=== PATIENT | female | born 1930 | race Caucasian/White ===

== ENCOUNTER 2017-11-21 09:20 | Observation (INO) | payer MEDICARE ==
[2017-11-21 10:04] LABS: Hematocrit 35 % (35-47); Hemoglobin 11.8 g/dl (12.0-16.0); Mean Corpuscular HGB Conc 34 g/dl (31-36); Mean Corpuscular Hemoglobin 28 pg (27-31); Mean Corpuscular Volume 83 fL (80-97); Mean Platelet Volume 9.5 um3 (7.4-10.4); Platelet Count 167 10^3/ul (150-450); Red Blood Count 4.22 10^6/ul (4.0-5.4); Red Cell Distribution Width 17 % (10.5-15); White Blood Count 15.2 10^3/ul (3.5-10.8)
--- NOTE | 2017-11-21 10:05 | RAD ---
INDICATION: Altered mental status. COMPARISON: Comparison is made with the prior study from October 01, 2015. TECHNIQUE: A portable view of the chest was obtained. FINDINGS: Cardiac and mediastinal contours appear to be within normal limits. The lungs are underinflated. There are small infiltrates at both lung bases. There is blunting of the left costophrenic angle possibly indicating a trace pleural effusion. IMPRESSION: LOW LUNG VOLUMES SMALL BIBASILAR INFILTRATES.
[2017-11-21 10:13] LABS: INR 0.87 (0.77-1.02)
[2017-11-21 10:27] LABS: EGFR Non-African American 21.3 (>60)
[2017-11-21 10:37] LABS: ABS Basophils 0.1 10^3/ul (0-0.2); ABS Eosinophils 0.1 10^3/ul (0-0.6); ABS Lymphocytes 2.6 10^3/ul (1.0-4.8); ABS Monocytes 1.1 10^3/ul (0-0.8); ABS Neutrophils 11.2 10^3/ul (1.5-7.7); ABS Nucleated RBC 0.1 10^3/ul; Eosinophil % 0.9 % (0-6); Nucleated Red Blood Cells % 0.3
[2017-11-21 11:12] LABS: Urine Appearance Cloudy; Urine Blood 2+ (Negative); Urine Color Yellow; Urine Ketones Negative (Negative); Urine Protein Negative (Negative); Urine Specific Gravity 1.009 (1.010-1.030); Urine Urobilinogen Negative (Negative)
[2017-11-21] MEDS ORDERED: Magnesium Sulfate 2 GM IV* 2 GM/50 ML BAG IVPB ONE (11:32)
[2017-11-21] MEDS ORDERED: cefTRIAXone(*) 1 GM in NS 0.9% 50 ML* 50 ML IVPB ONE (11:58)
[2017-11-21] MEDS ORDERED: Azithromycin IV(*) 500 MG in NS 0.9% 250 ML* 250 ML IVPB ONE (11:58)
[2017-11-21] MEDS ORDERED: NS 0.9% 1000 ML* 1,000 ML IV SCH (12:00)
[2017-11-21] MEDS ORDERED: Acetaminophen TAB* 325 MG PO PRN (12:40)
[2017-11-21] MEDS ORDERED: Loperamide CAP* 2 MG PO PRN (12:40)
[2017-11-21] MEDS ORDERED: Magnesium Sulfate IV* 3 GM in NS 0.9% 100 ML* 100 ML IVPB ONE (12:49)
--- NOTE | 2017-11-21 13:35 | ED ---
Keron Shin Tiffany, scribed for Joel Ledbetter MD on 11/21/17 at 0937 . HPI Diabetic - HPI Summary HPI Summary: The patient is an 87 year old F BIBA complains of low blood sugar since waking up one hour ago. Symptoms alleviated by EMS treatment. Reports diaphoresis, weakness, slurred speech. Per EMS, pt bg on arrival to scene was 40. D10 given en route, bg on arrival to ED 120 per EMS. Has hx of diabetes. - History Of Current Complaint Chief Complaint: EDDiabeticProb Time Seen by Provider: 11/21/17 09:21 Hx Obtained From: Patient, EMS Hx Last Menstrual Period: post christine Onset/Duration: Sudden Onset, Lasting Hours - 1 hour, Still Present Alleviating: EMS Treatment - Allergies/Home Medications Allergies/Adverse Reactions: Allergies Allergy/AdvReac Type Severity Reaction Status Date / Time banana Allergy Diarrhea Verified 11/21/17 09:43 Home Medications: Home Medications Atorvastatin* [Lipitor*] 20 mg PO DAILY 11/21/17 [History Confirmed 11/21/17] Chlorothiazide TAB* [Diuril TAB*] 250 mg PO DAILY 11/21/17 [History Confirmed ] Insulin Detemir (NF) [Levemir (NF)] 15 unit SUBCUT QAM 11/21/17 [History Confirmed 11/21/17] Lisinopril TAB* [Prinivil TAB*] 10 mg PO DAILY 11/21/17 [History Confirmed 11/21] Metoprolol Tartrate TAB* [Lopressor TAB*] 25 mg PO BID 11/21/17 [History Confirmed 11/21/17] Potassium Chlor TAB* [Klor Con ER TAB*] 20 meq PO DAILY 11/21/17 [History Confirmed 11/21/17] amLODIPine TAB* [Norvasc 5 mg TAB*] 10 mg PO DAILY 11/21/17 [History Confirmed 11/21/17] predniSONE TAB* [Deltasone TAB*] 5 mg PO DAILY 11/21/17 [History Confirmed 11/21] PMH/Surg Hx/FS Hx/Imm Hx Previously Healthy: No Endocrine/Hematology History: Reports: Hx Diabetes, Hx Anemia - ON IRON TABLETS , B12 shots/2 weeks Cardiovascular History: Reports: Hx Hypercholesterolemia, Hx Hypertension, Hx Rheumatic Fever - A CHILD Denies: Hx Congestive Heart Failure History: Reports: Hx Chronic Renal Failure - CKD stage III, Other Problems /Disorders - FREQUENT UTI Denies: Hx Renal Disease Musculoskeletal History: Comment Only: Other Musculoskeletal History - Knee injury 1995 Sensory History: Reports: Hx Cataracts - RIGHT, Hx Contacts or Glasses - At home , Hx Hearing Problem Denies: Hx Hearing Aid Opthamlomology History: Reports: Hx Cataracts - RIGHT, Hx Contacts or Glasses - At home Neurological History: Reports: Hx Dementia - Cancer History Hx Chemotherapy: No Hx Radiation Therapy: No - Surgical History Surgery Procedure, Year, and Place: 2009 RIGHT EYE CATARACT WITH IOL IMPLANT, [facility]. COLONOSCOPY Hx Anesthesia Reactions: No - Immunization History Date of Influenza Vaccine: Fall 2014 Infectious Disease History: No Infectious Disease History: Denies: Hx Clostridium Difficile, Hx Hepatitis, Hx Human Immunodeficiency Virus (HIV), History Other Infectious Disease, Traveled Outside the [place] in Last 30 Days - Family History Known Family History: Positive: Other - reviewed & noncontributory - Social History Lives: With Family - With nephew Alcohol Use: None Hx Substance Use: No Substance Use Type: Reports: None Hx Tobacco Use: Yes Smoking Status (MU): Former Smoker Type: Cigarettes Have You Smoked in the Last Year: No Review of Systems Positive: Skin Diaphoresis, Other - Low blood sugar Positive: Weakness, Slurred Speech All Other Systems Reviewed And Are Negative: Yes Physical Exam - Summary Physical Exam Summary: General: well-appearing, no pain distress Skin: warm, color reflects adequate perfusion, dry Head: normal Eyes: EOMI, REINA ENT: normal Neck: supple, nontender Respiratory: CTA, breath sounds present Cardiovascular: RRR Abdomen: soft, nontender Bowel: present Musculoskeletal: normal, strength/ROM intact Neurological: normal, sensory/motor intact, A&O x3 Psychological: affect/mood appropriate Triage Information Reviewed: Yes Vital Signs On Initial Exam: Initial Vitals Temp Pulse Resp BP Pulse Ox 97.4 F 94 14 167/72 100 11/21/17 09:22 11/21/17 09:22 11/21/17 09:22 11/21/17 09:22 11/21/17 09:22 Vital Signs Reviewed: Yes Diagnostics - Vital Signs Vital Signs Temp Pulse Resp BP Pulse Ox 11/21/17 09:22 97.4 F 94 14 167/72 100 - Laboratory Lab Results: Lab Results 11/21/17 11/21/17 11/21/17 Range/Units 09:52 09:52 09:52 WBC 15.2 H (3.5-10.8) 10^3/ul RBC 4.22 (4.0-5.4) 10^6/ul Hgb 11.8 L (12.0-16.0) g/dl Hct 35 (35-47) % MCV 83 (80-97) fL MCH 28 (27-31) pg MCHC 34 (31-36) g/dl RDW 17 H (10.5-15) % Plt Count 167 (150-450) 10^3/ul MPV 9.5 (7.4-10.4) um3 Neut % (Auto) 73.9 (38-83) % Lymph % (Auto) 17.0 L (25-47) % [place] % (Auto) 7.5 H (0-7) % Eos % (Auto) 0.9 (0-6) % Baso % (Auto) 0.7 (0-2) % Absolute Neuts (auto) 11.2 H (1.5-7.7) 10^3/ul Absolute Lymphs (auto) 2.6 (1.0-4.8) 10^3/ul Absolute Monos (auto) 1.1 H (0-0.8) 10^3/ul Absolute Eos (auto) 0.1 (0-0.6) 10^3/ul Absolute Basos (auto) 0.1 (0-0.2) 10^3/ul Absolute Nucleated RBC 0.1 10^3/ul Nucleated RBC % 0.3 INR (Anticoag Therapy) 0.87 (0.77-1.02) APTT 32.5 (26.0-36.3) seconds Sodium 136 L (139-145) mmol/L Potassium 4.5 (3.5-5.0) mmol/L Chloride 110 (101-111) mmol/L Carbon Dioxide 15 L (22-32) mmol/L Anion Gap 11 (2-11) mmol/L BUN 43 H (6-24) mg/dL Creatinine 2.19 H (0.51-0.95) mg/dL Est GFR ( Amer) 27.4 (>60) Est GFR (Non-Af Amer) 21.3 (>60) BUN/Creatinine Ratio 19.6 (8-20) Glucose 220 H (70-100) mg/dL Lactic Acid (0.5-2.0) mmol/L Calcium 9.2 (8.6-10.3) mg/dL Magnesium 1.1 L (1.9-2.7) mg/dL Total Bilirubin 0.30 (0.2-1.0) mg/dL AST 12 L (13-39) U/L ALT 13 (7-52) U/L Alkaline Phosphatase 69 (34-104) U/L Total Creatine Kinase 55 (10-223) U/L CK-MB (CK-2) 1.7 (0.6-6.3) ng/mL Troponin I 0.01 (<0.04) ng/mL C-Reactive Protein 2.35 (< 5.00) mg/L Total Protein 7.3 (6.4-8.9) g/dL Albumin 3.8 (3.2-5.2) g/dL Globulin 3.5 (2-4) g/dL Albumin/Globulin Ratio 1.1 (1-3) Lipase 43 (11.0-82.0) U/L TSH 4.62 (0.34-5.60) mcIU/mL Urine Color Urine Appearance Urine pH (5-9) Ur Specific [place] (1.010-1.030) Urine Protein (Negative) Urine Ketones (Negative) Urine Blood (Negative) Urine Nitrate (Negative) Urine Bilirubin (Negative) Urine Urobilinogen (Negative) Ur Leukocyte Esterase (Negative) Urine WBC (Auto) (Absent) Urine RBC (Auto) (Absent) Ur Squamous Epith Cells (Absent) Urine Bacteria (Absent) Urine Glucose (Negative) 11/21/17 11/21/17 Range/Units 09:52 10:40 WBC (3.5-10.8) 10^3/ul RBC (4.0-5.4) 10^6/ul Hgb (12.0-16.0) g/dl Hct (35-47) % MCV (80-97) fL MCH (27-31) pg MCHC (31-36) g/dl RDW (10.5-15) % Plt Count (150-450) 10^3/ul MPV (7.4-10.4) um3 Neut % (Auto) (38-83) % Lymph % (Auto) (25-47) % [place] % (Auto) (0-7) % Eos % (Auto) (0-6) % Baso % (Auto) (0-2) % Absolute Neuts (auto) (1.5-7.7) 10^3/ul Absolute Lymphs (auto) (1.0-4.8) 10^3/ul Absolute Monos (auto) (0-0.8) 10^3/ul Absolute Eos (auto) (0-0.6) 10^3/ul Absolute Basos (auto) (0-0.2) 10^3/ul Absolute Nucleated RBC 10^3/ul Nucleated RBC % INR (Anticoag Therapy) (0.77-1.02) APTT (26.0-36.3) seconds Sodium (139-145) mmol/L Potassium (3.5-5.0) mmol/L Chloride (101-111) mmol/L Carbon Dioxide (22-32) mmol/L Anion Gap (2-11) mmol/L BUN (6-24) mg/dL Creatinine (0.51-0.95) mg/dL Est GFR ( Amer) (>60) Est GFR (Non-Af Amer) (>60) BUN/Creatinine Ratio (8-20) Glucose (70-100) mg/dL Lactic Acid 1.2 (0.5-2.0) mmol/L Calcium (8.6-10.3) mg/dL Magnesium (1.9-2.7) mg/dL Total Bilirubin (0.2-1.0) mg/dL AST (13-39) U/L ALT (7-52) U/L Alkaline Phosphatase (34-104) U/L Total Creatine Kinase (10-223) U/L CK-MB (CK-2) (0.6-6.3) ng/mL Troponin I (<0.04) ng/mL C-Reactive Protein (< 5.00) mg/L Total Protein (6.4-8.9) g/dL Albumin (3.2-5.2) g/dL Globulin (2-4) g/dL Albumin/Globulin Ratio (1-3) Lipase (11.0-82.0) U/L TSH (0.34-5.60) mcIU/mL Urine Color Yellow Urine Appearance Cloudy Urine pH 5.0 (5-9) Ur Specific [place] 1.009 L (1.010-1.030) Urine Protein Negative (Negative) Urine Ketones Negative (Negative) Urine Blood 2+ A (Negative) Urine Nitrate Negative (Negative) Urine Bilirubin Negative (Negative) Urine Urobilinogen Negative (Negative) Ur Leukocyte Esterase 1+ A (Negative) Urine WBC (Auto) 3+(>20/hpf) A (Absent) Urine RBC (Auto) 1+(3-5/hpf) A (Absent) Ur Squamous Epith Cells Present A (Absent) Urine Bacteria Absent (Absent) Urine Glucose 1+(50 mg/dl) A (Negative) Result Diagrams: 11/21/17 09:52 11/21/17 09:52 Lab Statement: Any lab studies that have been ordered have been reviewed, and results considered in the medical decision making process. - Radiology CXR Radiology Interpretation Completed By: Radiologist - LOW LUNG VOLUMES SMALL BIBASILAR INFILTRATES. ED physician has reviewed this report. 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 Re-Evaluation - Re-Evaluation First Eval Re-Evaluation Time: 11:57 Change: Unchanged Comment: Discussed dispo plan with patient, who would like to be admitted. Diabetic Course/Dx - Course Course Of Treatment: Medications reviewed. ADMIT HOSPITALIST. CRITICAL CARE TIME LESS THAN 30 MINUTES. - Diagnoses Provider Diagnoses: Hypoglycemia, Pneumonia - Physician Notifications Discussed Care Of Patient With: Brandy Read Time Discussed With Above Provider: 12:00 Instructed by Provider To: Other - Dr. Read, hospitalist, agrees to admit patient. Discharge - Sign-Out/Discharge Documenting (check all that apply): Discharge/Admit/Transfer - Discharge Plan Condition: Stable Disposition: ADMITTED TO [facility] Referrals: Jami Martin MD [Primary Care Provider] - - Billing Disposition and Condition Condition: STABLE [place] [place] The documentation as recorded by the Keron langley Tiffany accurately reflects the service I personally performed and the decisions made by , Joel Ledbetter MD.
--- NOTE | 2017-11-21 15:12 | HP ---
CC: Dr. Martin * [facility] MEDICINE HISTORY AND PHYSICAL: DATE OF ADMISSION: 11/21/17 PRIMARY CARE PHYSICIAN: Dr. Martin. ATTENDING PHYSICIAN: Brandy Read MD (dictation provided by Yessy Ferrara NP) CHIEF COMPLAINT: Diaphoresis and weakness. HISTORY OF PRESENT ILLNESS: Ms. Cordova is an 87-year-old female with a past medical history of insulin-dependent diabetes, CKD stage 3, and hypertension as well as polymyalgia rheumatica, on low-dose prednisone therapy chronically, who presents to the hospital today after waking this morning and feeling diaphoretic and weak. Ms. Cordova states that she was in her normal state of health yesterday. She denies any acute complaints including chest pain, shortness of breath, cough, fever, nausea, vomiting, diarrhea, malaise, dysuria , or frequency. She went to bed feeling well; however, when she awoke this morning at about 8 a.m., she felt very diaphoretic and weak. She was unable to get out of bed. She called for her son, Jake who lives with her and she was transported via EMS to the emergency room. Ms. Cordova was found to have a blood glucose of 40 on arrival via EMS. D10 was started and the patient was transported to the emergency room. The D10 has already been discontinued. Her repeat blood glucoses have been 120 and now 220. She is asymptomatic. She is tolerating oral intake well. Her workup includes white blood cell count of 15.2, but I will note that the patient has had a chronic leukocytosis since 2016. Remainder of her labs are remarkable only to show her chronic kidney disease, which is unchanged and a low magnesium of 1.1. Her urinalysis shows 1+ leuk esterase but no bacteria. Chest x-ray shows question of bibasilar infiltrates that likely reflect atelectasis. Ms. Cordova states that she saw Dr. Martin about 2 months ago. At that time, her Levemir insulin was increased, but that has been the only change with her medications recently and she continues chronically on glipizide for quite some time. I note that in the medical record, her last hemoglobin A1c was 8.4 as of 10/21/17. PAST MEDICAL HISTORY: 1. Polymyalgia rheumatica, on chronic low-dose prednisone. 2. Type 2 diabetes, insulin dependent. 3. CKD, stage 3. 4. History of anemia due to chronic disease. 5. Hypertension. 6. Hyperlipidemia. 7. Chronic leukocytosis, question if secondary to prednisone. MEDICATIONS: 1. Glipizide 10 mg p.o. b.i.d. with meals. 2. Levemir insulin 15 units subcutaneously q.a.m. 3. Tylenol 650 mg p.o. q.4 hours p.r.n. 4. Amlodipine 10 mg p.o. daily. 5. Atorvastatin 20 mg p.o. daily. 6. Calcitriol 0.25 mcg p.o. Wednesday, Wednesday, Wednesday. 7. Chlorothiazide 250 mg p.o. daily. 8. Folic acid 1 mg p.o. daily. 9. Lisinopril 10 mg p.o. daily. 10. Imodium 2 mg p.o. q.6 hours p.r.n. 11. Metoprolol tartrate 25 mg p.o. b.i.d. 12. Omeprazole 20 mg p.o. daily. 13. Potassium chloride 20 mEq p.o. daily. 14. Prednisone 5 mg p.o. daily. ALLERGIES: BANANAS. FAMILY HISTORY: The patient reports her mother and father both in their 70s of what she considered old age. SOCIAL HISTORY: No report of alcohol, tobacco, or drug use. The patient lives with her nephew, Jake. She states that her son, Jonatan and her daughter, Eladia, would be her healthcare proxies. REVIEW OF SYSTEMS: A 14-point review of systems was completed with Ms. Cordova and all those not mentioned above were negative. PHYSICAL EXAMINATION GENERAL: Ms. Cordova is lying in the bed with the family at the bedside. She is in no acute distress. VITAL SIGNS: Temperature 97.4, pulse rate 75, respiratory rate 14, O2 saturation 99% on room air, blood pressure 135/76. LUNGS: Clear to auscultation bilaterally with no accessory muscle use and good aeration. HEART: S1, S2. No murmur, rub, or gallop and regular. ABDOMEN: Soft, nontender with bowel sounds positive x4. EXTREMITIES: No cyanosis. Positive for 1 to 2+ pitting edema up to the mid calf. NEURO: She is alert. She is oriented x3. She moves all extremities equally. There is no facial asymmetry or focal weakness. Extraocular movements are intact. SKIN: Intact. DIAGNOSTIC STUDIES/LAB DATA: WBC 15.2, hemoglobin 11.8, hematocrit 35, platelet count 167. INR 0.87. Sodium 136, potassium 4.5, chloride 110, serum bicarbonate 15, BUN 43, creatinine 2.19, glucose 220. Lactic acid 1.2. Magnesium 1.1. TSH 4.62. Urine shows 1+ leuk esterase, no nitrite, no bacteria. Chest x-ray shows "low lung volumes, small bibasilar infiltrates." The EKG shows a sinus rhythm with a heart rate of 78. ASSESSMENT AND PLAN: Ms. Cordova is an 87-year-old female with a past medical history of insulin-dependent type 2 diabetes, polymyalgia rheumatica, on prednisone, chronic kidney disease stage 3, chronic anemia, and hypertension, who presents to the hospital today with concern for diaphoresis and weakness. This a.m. on awakening, found to be hypoglycemic with a blood glucose in the 40s. Our plans are for observation in the hospital for the followin. Hypoglycemia: The patient's blood glucose is now running 220. The D10 infusion is off. We will continue to monitor blood glucose closely at q.4 hours and we will initiate insulin therapy when appropriate. The patient will continue on IV fluids. The cause of her hypoglycemia is not clear. She has no evidence of infection. She states that she was feeling well yesterday and was eating per her routine. I see no evidence of abnormality in the workup thus far. Plan will be to treat hypoglycemia and any further interventions will be based on clinical course. 2. Leukocytosis. The patient has a chronic leukocytosis. No evidence of infection on workup or from reported symptoms. We will continue to monitor, but do not feel that antibiotics are indicated at this time. 3. Chronic kidney disease, stage 3. The patient's creatinine is at baseline. Plan to continue home medications. 4. Hypomagnesemia. Magnesium has been repleted in the emergency room at 2 g. Plan to add further 3 more grams and we will recheck in the a.m. The patient has had chronic hypomagnesemia per the electronic medical record. 5. Hypertension. The patient's blood pressure is well controlled. We will continue with amlodipine, metoprolol, lisinopril, chlorothiazide. I do note that the patient reports chronic lower extremity edema, which is present today. She may benefit from adjustments to her regimen to include additional diuretic agents, but will not initiate that at this time, but will refer her to primary care since this is a chronic issue. 6. Polymyalgia rheumatica. Continue prednisone. This likely contributes to her lower extremity edema, but it is important for control of pain and her polymyalgia rheumatica. Continue as per Dr. Moreno's recommendations. 7. Gastroesophageal reflux disease. Continue omeprazole. 8. Hyperlipidemia. Continue atorvastatin. 9. DVT prophylaxis with heparin subcu. 10. Code status is full code. TIME SPENT: Approximately 60 minutes was spent on the admission of this patient , and more than half of the time was spent with the patient at the bedside reviewing the events leading up to this hospitalization, performing the physical examination and reviewing my plan of care. YESSY FERRARA NP [id number]/[facility] #: [id number] NANDINI
[2017-11-21] MEDS: NS 0.9% 1000 ML* 1,000 ML IV SCH (15:21)
[2017-11-21] MEDS: Heparin VIAL(*) 5000 UNITS/ML VIAL (FIVE THOUSAND) SUBCUT SCH ×2 (15:21→21:18)
[2017-11-21] MEDS ORDERED: Magnesium Sulfate 2 GM IV IVPB ONE (16:00)
[2017-11-21] MEDS ORDERED: Magnesium Sulfate 1 GM IV* 1 GM/100 ML BAG IV ONE (17:00)
[2017-11-21] MEDS ORDERED: Dextrose 50% Syringe 50 ML* 25 GM/50 ML SYRINGE IV PUSH PRN ×2 (20:23)
[2017-11-21] MEDS: Metoprolol Tartrate TAB* 25 MG PO SCH (21:17)
[2017-11-21] MEDS: Insulin LISPRO* 1 UNITS UNIT SUBCUT ONE ×2 (21:21→21:28)
[2017-11-22] MEDS: NS 0.9% 1000 ML* 1,000 ML IV SCH (01:17)
[2017-11-22] MEDS: Heparin VIAL(*) 5000 UNITS/ML VIAL (FIVE THOUSAND) SUBCUT SCH (05:33)
[2017-11-22 07:07] LABS: EGFR Non-African American 24.5 (>60)
[2017-11-22 07:20] LABS: ABS Basophils 0.1 10^3/ul (0-0.2); ABS Eosinophils 0.1 10^3/ul (0-0.6); ABS Lymphocytes 2.7 10^3/ul (1.0-4.8); ABS Monocytes 0.8 10^3/ul (0-0.8); ABS Neutrophils 6.3 10^3/ul (1.5-7.7); ABS Nucleated RBC 0.1 10^3/ul; Eosinophil % 1.3 % (0-6); Hematocrit 28 % (35-47); Hemoglobin 9.6 g/dl (12.0-16.0); Lymphocyte % 27.4 % (25-47); Mean Corpuscular HGB Conc 34 g/dl (31-36); Mean Corpuscular Hemoglobin 28 pg (27-31); Mean Corpuscular Volume 83 fL (80-97); Mean Platelet Volume 9.5 um3 (7.4-10.4); Nucleated Red Blood Cells % 0.5; Platelet Count 148 10^3/ul (150-450); Red Blood Count 3.41 10^6/ul (4.0-5.4); Red Cell Distribution Width 17 % (10.5-15)
[2017-11-22] MEDS: Insulin LISPRO* 1 UNITS UNIT SUBCUT SCH ×2 (08:04→12:28)
[2017-11-22] MEDS: Metoprolol Tartrate TAB* 25 MG PO SCH (08:55)
[2017-11-22] MEDS ORDERED: Potassium Chlor TAB* 20 MEQ TAB.ER PO SCH (09:00)
[2017-11-22] MEDS ORDERED: Omeprazole CAP* 20 MG PO SCH (09:00)
[2017-11-22] MEDS ORDERED: Folic Acid TAB* 1 MG PO SCH (09:00)
[2017-11-22] MEDS ORDERED: Atorvastatin* 20 MG TAB PO SCH (09:00)
[2017-11-22] MEDS ORDERED: CHLOROTHIAZIDE 500 MG PO SCH (09:00)
[2017-11-22] MEDS ORDERED: Lisinopril TAB* 10 MG PO SCH (09:00)
[2017-11-22] MEDS ORDERED: amLODIPine TAB* 5 MG PO SCH (09:00)
[2017-11-22] MEDS ORDERED: predniSONE TAB* 5 MG PO SCH (09:00)
[2017-11-22 11:16] VITALS: BP 117/50
[2017-11-22] MEDS ORDERED: Calcitriol CAP* 0.25 MCG PO SCH (12:40)
--- NOTE | 2017-12-20 00:16 | DS ---
CC: Dr. Martin * DISCHARGE SUMMARY: DATE OF ADMISSION: 11/21/17 DATE OF DISCHARGE: 11/22/17 PATIENT OF: Dr. Brandy Read. ADMITTING PHYSICIAN: Dr. Read.* (DICTATED BY LOUSI WINKLER) ATTENDING HOSPITALIST: Dr. Read. PRIMARY CARE PHYSICIAN: Dr. Martin. ADMISSION DIAGNOSES: 1. Diaphoresis and weakness. 2. History of polymyalgia rheumatica, on chronic low dose prednisone. 3. Type 2 diabetes mellitus, insulin-dependent. 4. Chronic kidney disease, stage 3. 5. History of anemia due to chronic disease. 6. Hypertension. 7. Hyperlipidemia. 8. Chronic leukocytosis likely secondary to prednisone use. DISCHARGE DIAGNOSES: 1. Diaphoresis and weakness. 2. History of polymyalgia rheumatica, on chronic low dose prednisone. 3. Type 2 diabetes mellitus, insulin-dependent. 4. Chronic kidney disease, stage 3. 5. History of anemia due to chronic disease. 6. Hypertension. 7. Hyperlipidemia. 8. Chronic leukocytosis likely secondary to prednisone use. 9. Hypoglycemia. HISTORY OF PRESENT ILLNESS: Ms. Cordova is a pleasant 87-year-old female with a past medical history of insulin-dependent diabetes mellitus, chronic kidney disease, hypertension, and polymyalgia rheumatica, who presented to the emergency room after she woke up this morning and feeling diaphoretic and weak. The patient denies any acute complaints in the emergency room such as chest pain, shortness of breath, cough, fever, nausea, or vomiting. She went to the bed the night before feeling well; however, she woke up on the morning of feeling shaky, weak, and diaphoretic. She checked her blood glucose at home and reports being low. She called the ambulance and the EMS staff on arrival checked her blood glucose and found to be at value of 40. She was given an ampule of D10 and the patient was transported to the emergency room at [facility]. Upon presentation to the ED, her blood glucose was checked again and now was at level of 120 and few minutes later at 220. She was asymptomatic at this time. The patient tolerating oral intake well and had laboratory workup that revealed mild leukocytosis, which is basically at her baseline of 15,000. The remainder of her chemistry and other labs were essentially unremarkable. She also had a questionable chest x-ray that showed bibasilar infiltrate most likely reflect atelectasis since she was asymptomatic. Given the findings of her hypoglycemic episodes, we were asked to see the patient for observation overnight. HOSPITAL COURSE: The patient was admitted overnight for observation and had serial check of her blood sugar. She only had 1 dextrose 10 infusion en route to the emergency room and since then, her blood glucose levels were risen in reasonable numbers. It was unclear what caused her hypoglycemic episode; however, there was no evidence of any infection during her hospitalization. She had laboratory workup on the following morning that revealed no significant changes. She had repeat blood glucose checks that continued to be at reasonable value. On the discharge morning, the patient was examined and found to be alert, oriented and has no complaints. Her heart was regular rate and rhythm with no murmurs noted. Her lungs were clear to auscultation bilaterally. Her abdomen was soft, nontender, and nondistended. Laboratory workup on the following day revealed sodium of 139, potassium 4.7, chloride 115 , CO2 18, BUN 36 and creatinine of 1.9. Her glucose was 158, magnesium was 2.6 and her CBC revealed a white count of 10,000, hemoglobin 9.6, and hematocrit 28 , platelets of 148. The patient was stable to be discharged home and will continue her antihyperglycemic regimen at home, to follow up with Dr. Martin as an outpatient. DISCHARGE MEDICATIONS: Include: 1. Acetaminophen 650 mg p.o. q.4 hours as needed for fever or pain. 2. Norvasc 10 mg p.o. daily. 3. Lipitor 20 mg p.o. daily. 4. Rocaltrol 0.25 mcg p.o. daily. 5. Diuril 250 mg p.o. daily. 6. Folic acid 1 mg p.o. daily. 7. Glipizide 10 mg p.o. b.i.d. 8. Levemir insulin 15 unit subcu. 9. Lisinopril 10 mg p.o. daily. 10. Imodium 2 mg p.o. q.6 hours as needed for diarrhea. 11. Magnesium oxide 400 mg p.o. daily. 12. Metoprolol 25 mg p.o. b.i.d. 13. Prilosec 20 mg p.o. daily. 14. Potassium 20 mEq p.o. daily. 15. Prednisone 5 mg p.o. daily. LOUIS WINKLER [id number]/[facility] #: [id number] [facility] [place] DIVISIONPartha
== END 2017-11-22 13:00 | disposition home or self-care (01) ==
LOC: ED 09:20 → MED 12:37
PROVIDERS: ADMIT Internal Medicine; ATTEND Internal Medicine
DX: R61 Generalized hyperhidrosis (principal); R53.1 Weakness; I12.9 Hypertensive chronic kidney disease with stage 1 through stage 4 chronic kidney disease, or unspecified chronic kidney disease; E11.22 Type 2 diabetes mellitus with diabetic chronic kidney disease; N18.3 Chronic kidney disease, stage 3 (moderate); Z79.4 Long term (current) use of insulin; M35.3 Polymyalgia rheumatica; D63.8 Anemia in other chronic diseases classified elsewhere; E78.5 Hyperlipidemia, unspecified; D72.829 Elevated white blood cell count, unspecified; Z79.899 Other long term (current) drug therapy; Z87.891 Personal history of nicotine dependence; I48.91 Unspecified atrial fibrillation; I45.2 Bifascicular block
CPT/HCPCS: 36415; 71045; 80048; 80053; 81003; 81015; 82306; 82550; 82553; 82728; 83540; 83550; 83605; 83690; 83735; 84443; 84484; 85025; 85610; 85730; 86140; 87040; 87077; 87086; 87186; 93005; 96365; 96367; 96372; 99285; A9270-GY; G0378; J0456; J0696; J1644; J3475; J7512

== ENCOUNTER 2019-01-22 11:26 | Inpatient (IN) | payer MEDICARE ==
--- NOTE | 2019-01-22 11:45 | ED ---
Abdominal Pain/Female - HPI Summary HPI Summary: This patient is an 88 year old female accompanied by her daughter presenting to [facility] with a chief complaint of general weakness since 3 days ago. She states three days of nausea with one episode of vomiting in the morning with each day before her first meal. She states one episode of diarrhea yesterday one time. She denies any abdominal pain. Her daughter states she was here several months ago with similar symptoms and she was diagnosed and treated for a UTI. She denies abdominal pain, chest pain, and shortness of breath. - History of Current Complaint Chief Complaint: EDNauseaVomitDiarrh Stated Complaint: WEAKNESS AND QUEASY PER PT Time Seen by Provider: 01/22/19 11:38 Hx Obtained From: Patient, Family/Health Unit Supervisor Hx Last Menstrual Period: post christine Onset/Duration: Lasting Days Pain Intensity: 0 Pain Scale Used: 0-10 Numeric Allergies/Adverse Reactions: Allergies Allergy/AdvReac Type Severity Reaction Status Date / Time banana Allergy Diarrhea Verified 01/22/19 11:33 PMH/Surg Hx/FS Hx/Imm Hx Endocrine/Hematology History: Reports: Hx Diabetes, Hx Anemia - ON IRON TABLETS , B12 shots/2 weeks Cardiovascular History: Reports: Hx Hypercholesterolemia, Hx Hypertension, Hx Rheumatic Fever - A CHILD Denies: Hx Congestive Heart Failure History: Reports: Hx Chronic Renal Failure - CKD stage III, Other Problems /Disorders - FREQUENT UTI Denies: Hx Renal Disease Musculoskeletal History: Comment Only: Other Musculoskeletal History - Knee injury 1995 Sensory History: Reports: Hx Cataracts - RIGHT, Hx Contacts or Glasses - At home , Hx Hearing Problem Denies: Hx Hearing Aid Opthamlomology History: Reports: Hx Cataracts - RIGHT, Hx Contacts or Glasses - At home Neurological History: Reports: Hx Dementia - Cancer History Hx Chemotherapy: No Hx Radiation Therapy: No - Surgical History Surgery Procedure, Year, and Place: 2009 RIGHT EYE CATARACT WITH IOL IMPLANT, [facility] – [place], [place]. COLONOSCOPY Hx Anesthesia Reactions: No - Immunization History Date of Tetanus Vaccine: t Date of Influenza Vaccine: Fall 2014 Infectious Disease History: No Infectious Disease History: Denies: Hx Clostridium Difficile, Hx Hepatitis, Hx Human Immunodeficiency Virus (HIV), History Other Infectious Disease, Traveled Outside the [place] in Last 30 Days - Family History Known Family History: Positive: Non-Contributory Negative: Cardiac Disease - Social History Alcohol Use: None Hx Substance Use: No Substance Use Type: Reports: None Hx Tobacco Use: Yes Smoking Status (MU): Former Smoker Type: Cigarettes Have You Smoked in the Last Year: No Review of Systems Negative: Chest Pain Negative: Shortness Of Breath Positive: Vomiting, Diarrhea, Nausea. Negative: Abdominal Pain Positive: Weakness All Other Systems Reviewed And Are Negative: Yes Physical Exam - Summary Physical Exam Summary: VITAL SIGNS: Reviewed. GENERAL: Patient is a well-developed and nourished FEMALE who is lying comfortable in the stretcher. Patient is not in any acute respiratory distress. HEAD AND FACE: No signs of trauma. No ecchymosis, hematomas or skull depressions. No sinus tenderness. EYES: PERRLA, EOMI x 2, No injected conjunctiva, no nystagmus. EARS: Hearing grossly intact. Ear canals and tympanic membranes are within normal limits. MOUTH: Oropharynx within normal limits. NECK: Supple, trachea is midline, no adenopathy, no JVD, no carotid bruit, no c- spine tenderness, neck with full ROM. CHEST: Symmetric, no tenderness at palpation. LUNGS: Clear to auscultation bilaterally. No wheezing or crackles. CVS: Regular rate and rhythm, S1 and S2 present, no murmurs or gallops appreciated. ABDOMEN: Soft, non-tender. No signs of distention. No rebound, no guarding, and no masses palpated. Bowel sounds are normal. EXTREMITIES: FROM in all major joints, no edema, no cyanosis or clubbing. NEURO: Alert and oriented x 3. No acute neurological deficits. Speech is normal and follows commands. SKIN: Dry and warm. Triage Information Reviewed: Yes Vital Signs On Initial Exam: Initial Vitals Temp Pulse Resp BP Pulse Ox 97.1 F 91 14 136/63 99 01/22/19 11:26 01/22/19 11:26 01/22/19 11:26 01/22/19 11:26 01/22/19 11:26 Vital Signs Reviewed: Yes Diagnostics - Vital Signs Vital Signs Temp Pulse Resp BP Pulse Ox 01/22/19 11:26 97.1 F 91 14 136/63 99 - Laboratory Result Diagrams: 01/22/19 12:23 01/22/19 12:23 Lab Statement: Any lab studies that have been ordered have been reviewed, and results considered in the medical decision making process. Abdominal Pain Fem Course/Dx - Course Course Of Treatment: This patient is an 88 year old female accompanied by her daughter presenting to [facility] with a chief complaint of general weakness since 3 days ago. She states three days of nausea with one episode of vomiting in the morning with each day before her first meal. She states one episode of diarrhea yesterday one time. She denies any abdominal pain. Her daughter states she was here several months ago with similar symptoms and she was diagnosed and treated for a UTI. She denies abdominal pain, chest pain, and shortness of breath. Blood work without any significant abnormality except for WBCs of 13.7, positional is 3.3, couple days is 17, anion of 17, BUN 83 creatinine 4.28, glucose 132, lactic acid is 2.8, calcium 8.5, magnesium 1.1, CRP is 104, and urinalysis positive for UTI. In the ER the patient was given Rocephin for the UTI, sulfa for nausea and vomiting, IV fluids for dehydration, and magnesium IV for the hypomagnesemia. Patient also was given potassium for hypokalemia. I discuss my physical exam and test results with Dr. Sandoval from the hospitalist services and he agrees to admit patient to his services. Patient is hemodynamically stable alert and oriented x 3. - Diagnoses Provider Diagnoses: Renal failure, UTI (urinary tract infection), Hyperglycemia, Hypomagnesemia - Provider Notifications Discussed Care Of Patient With: Abdias Sandoval - Hospitalist Time Discussed With Above Provider: 13:30 Instructed by Provider To: Admit As Inpatient Discharge - Sign-Out/Discharge Documenting (check all that apply): Patient Departure - Admission - Discharge Plan Condition: Stable Disposition: ADMITTED TO [facility] - Billing Disposition and Condition Condition: STABLE Disposition: Admitted to [facility] - Attestation Statements Document Initiated by Romi: Yes Documenting Scribe: Loki Woodall Provider For Whom Romi is Documenting (Include Credential): MD Nayla Palaciosibnasreen Attestation: Loki Shin scribed for Darrick Burr MD on 01/22/19 at 2021. Scribe Documentation Reviewed: Yes Provider Attestation: The documentation as recorded by the Loki langley accurately reflects the service I personally performed and the decisions made by , Darrick Burr MD Status of Scribe Document: Viewed
[2019-01-22] MEDS ORDERED: NS 0.9% 1000 ML** 1,000 ML IV ONE (11:47)
[2019-01-22] MEDS ORDERED: Ondansetron INJ* 2 MG/ML VIAL IV ONE (11:47)
[2019-01-22 12:25] LABS: Urine Appearance Turbid; Urine Bacteria Absent (Absent); Urine Bilirubin Negative (Negative); Urine Blood 2+ (Negative); Urine Color Amber; Urine Glucose Negative (Negative); Urine Ketones Negative (Negative); Urine Nitrite Negative (Negative); Urine Protein 2+(100 mg/dL) (Negative); Urine Red Blood Cell 1+(3-5/hpf) (Absent); Urine Specific Gravity 1.011 (1.010-1.030); Urine Squamous Epithelial Cell Present (Absent); Urine Urobilinogen Negative (Negative); Urine White Blood Cell 3+(>20/hpf) (Absent)
[2019-01-22 12:33] LABS: ABS Basophils 0.1 10^3/ul (0-0.2); ABS Eosinophils 0.1 10^3/ul (0-0.6); ABS Lymphocytes 2.6 10^3/ul (1.0-4.8); ABS Monocytes 1.4 10^3/ul (0-0.8); ABS Neutrophils 9.5 10^3/ul (1.5-7.7); Eosinophil % 0.5 %; Hematocrit 35 % (35-47); Hemoglobin 11.4 g/dL (12.0-16.0); Lymphocyte % 18.7 %; Mean Corpuscular HGB Conc 33 g/dL (31-36); Mean Corpuscular Hemoglobin 28 pg (27-31); Mean Corpuscular Volume 84 fL (80-97); Mean Platelet Volume 8.6 fL (7.4-10.4); Nucleated Red Blood Cells % 0.3; Platelet Count 177 10^3/uL (150-450); Red Blood Count 4.15 10^6 /uL (3.70-4.87); Red Cell Distribution Width 15 % (10-15); White Blood Count 13.7 10^3/uL (3.5-10.8)
[2019-01-22 12:48] LABS: Albumin 3.7 g/dL (3.2-5.2); Albumin/Globulin Ratio 0.9 (1-3); BUN/Creatinine Ratio 19.4 (8-20); C Reactive Protein 104.25 mg/L (<8.01); Calcium 8.5 mg/dL (8.6-10.3); EGFR African American 11.9 (>60); EGFR Non-African American 9.8 (>60); Globulin 3.9 g/dL (2-4); Magnesium 1.1 mg/dL (1.9-2.7); Potassium 3.3 mmol/L (3.5-5.0); Total Bilirubin 0.5 mg/dL (0.2-1.0); Total Protein 7.6 g/dL (6.4-8.9)
[2019-01-22] MEDS ORDERED: Magnesium Sulfate 1 GM IV* 1 GM/100 ML BAG IV ONE ×2 (13:24→14:01)
[2019-01-22] MEDS ORDERED: Potassium Chlor TAB* 20 MEQ TAB.ER PO ONE (13:25)
[2019-01-22] MEDS ORDERED: cefTRIAXone(*) 1 GM in NS 0.9% 50 ML* 50 ML IVPB ONE (13:28)
[2019-01-22] MEDS: NS 0.9% 1000 ML** 1,000 ML IV SCH ×2 (13:42→22:00)
[2019-01-22 13:50] LABS: Urine Appearance Turbid; Urine Bacteria Absent (Absent); Urine Bilirubin Negative (Negative); Urine Blood 2+ (Negative); Urine Color Yellow; Urine Glucose Negative (Negative); Urine Ketones Negative (Negative); Urine Nitrite Negative (Negative); Urine Protein 2+(100 mg/dL) (Negative); Urine Red Blood Cell Trace(0-2/hpf) (Absent); Urine Urobilinogen Negative (Negative); Urine White Blood Cell 3+(>20/hpf) (Absent)
[2019-01-22] MEDS ORDERED: Dextrose 50% Syringe 50 ML* 25 GM/50 ML SYRINGE IV PUSH PRN (14:12)
--- NOTE | 2019-01-22 14:19 | ADMNOTE ---
Subjective Date of Service: 01/22/19 Interval History: ADMISSION HISTORY AND PHYSICAL EXAM: Allergies Allergy/AdvReac Type Severity Reaction Status Date / Time banana Allergy Diarrhea Verified 01/22/19 11:33 Home Medications Medication Instructions Recorded Confirmed Type Omeprazole CAP (NF) [Prilosec CAP* 20 mg PO DAILY 08/27/15 01/22/19 History 20 MG] Calcitriol CAP* [Rocaltrol CAP*] 0.25 mcg PO MOWEFR 08/30/15 01/22/19 History Folic Acid TAB* [Folvite TAB*] 1 mg PO DAILY #30 tab 09/02/15 01/22/19 Rx Acetaminophen TAB* [Tylenol TAB*] 650 mg PO Q4H PRN 10/22/15 01/22/19 History Loperamide CAP* [Imodium CAP*] 2 mg PO Q6HR PRN MDD 4 caps 10/22/15 01/22/19 History glipiZIDE TAB* [Glucotrol TAB*] 10 mg PO BID AC 10/22/15 01/22/19 History Atorvastatin* [Lipitor 20 MG*] 20 mg PO DAILY 11/21/17 01/22/19 History Chlorothiazide TAB* [Diuril TAB*] 250 mg PO DAILY 11/21/17 01/22/19 History Insulin Detemir (NF) [Levemir (NF)] 15 unit SUBCUT QAM 11/21/17 01/22/19 History Lisinopril TAB* [Prinivil TAB 10 10 mg PO DAILY 11/21/17 01/22/19 History MG*] Metoprolol Tartrate TAB* 25 mg PO BID 11/21/17 01/22/19 History [Lopressor TAB*] amLODIPine TAB* [Norvasc 5 mg TAB*] 10 mg PO DAILY 11/21/17 01/22/19 History predniSONE TAB* [Deltasone TAB*] 5 mg PO DAILY 11/21/17 01/22/19 History HPI: The patient lives with her nephew. The nephew noted the patient was more lethargic, "not herself", eating poorly. He called the patient's daughter who drove down from [place] and agreed the patient looked poorly, similar to prior UTI's. No vomiting, diarrhea. The patient denies pain, nausea, hunger, thirst. Social History: Findings - Never smoked, no alcohol abuse. Lives with a nephew. Son and daughter are SDM's. Past Medical History: Findings - CKD, PMR, DM, HTN, HL. Review of Systems - Measurements Intake and Output: Intake and Output Last 24 Hours 01/20/19 01/21/19 01/22/19 01/23/19 06:59 06:59 06:59 06:59 Intake Total 1050 Balance 1050 Weight 160 lb Intake: IV Fluids 1050 - Review of Systems Constitutional Symptoms: Positive: Weight Loss - uncertain amount Dermatology: Positive: Normal HEENT: Positive: Normal Eyes: Positive: Normal Thyroid: Positive: Normal Pulmonary: Positive: Normal Cardiology: Positive: Normal Gastroenterology: Positive: Anorexia Genital - Urinary: Positive: Normal Musculoskeletal: Positive: Joint Pain Endocrinology: Positive: Diabetes Mellitus Hematologic/Lymphatic: Positive: Anemia Neurology: Positive: Other - PMR Psychiatry: Positive: Normal Allergic/Immunologic: Negative: Hx Anaphylaxis, Hx Angioedema, Hx Environmental, Hx Seasonal, Asthma, Hx HIV, Immunocompromise, Swollen Glands LymphNodes, Other Objective Active Medications: Atorvastatin Calcium (Lipitor*) 20 mg PO DAILY [facility] Calcitriol (Rocaltrol Cap*) 0.25 mcg PO MOWEFR [facility] Dextrose (D50w Syringe 50 Ml*) 12.5 gm IV PUSH .FOR FS < 60 - SS PRN PRN Reason: FS < 60 Folic Acid (Folvite Tab*) 1 mg PO DAILY [facility] Sodium Chloride (Ns 0.9% 1000 Ml) 1,000 mls @ 125 mls/hr IV PER RATE [facility] Last Admin: 01/22/19 13:42 Dose: 125 mls/hr Magnesium Sulfate/Dextrose (Magnesium Sulfate 1 Gm Iv*) 1 gm in 100 mls @ 200 mls/hr IV ONCE ONE Stop: 01/22/19 14:30 Insulin Detemir (Levemir (Nf)) 15 unit SUBCUT QAM [facility] Insulin Human Lispro (Humalog*) 0 units SUBCUT ACHS [facility]; Protocol Metoprolol Tartrate (Lopressor Tab*) 25 mg PO BID [facility] Pantoprazole Sodium (Protonix Tab*) 40 mg PO DAILY [facility] Prednisone (Deltasone Tab*) 5 mg PO DAILY [facility] Vital Signs - 8 hr 07/07/19 07/07/19 07/07/19 11:26 12:11 12:13 Temperature 97.1 F Pulse Rate 91 86 Respiratory 14 Rate Blood Pressure 136/63 137/68 (mmHg) O2 Sat by Pulse 99 98 Oximetry 01/22/19 01/22/19 01/22/19 12:41 13:00 13:12 Temperature Pulse Rate 76 82 91 Respiratory Rate Blood Pressure 121/57 117/60 (mmHg) O2 Sat by Pulse 100 100 100 Oximetry 01/22/19 01/22/19 13:42 14:00 Temperature Pulse Rate 85 78 Respiratory Rate Blood Pressure 133/75 (mmHg) O2 Sat by Pulse 100 100 Oximetry Oxygen Devices in Use Now: None Appearance: Alert, partly up on ED stretcher. In good spirits. Looks comfortable. Eyes: No Scleral Icterus Ears/Nose/Mouth/Throat: Clear Oropharnyx, Mucous Membranes Moist, - - edentulous Respiratory: Symmetrical Chest Expansion and Respiratory Effort, Clear to Auscultation, Clear to Percussion Extremities: No Clubbing, Cyanosis, - - 2+ edema BL, both legs very wrinkled Skin: No Rash or Ulcers, No Nodules or Sclerosis, - Neurological: Alert and Oriented x 3, NL Sensation Result Diagrams: 01/22/19 12:23 01/22/19 12:23 Assess/Plan/Problems-Billing Assessment: - Patient Problems (1) Acute on chronic kidney failure Current Visit: Yes Status: Acute Code(s): N17.9 - ACUTE KIDNEY FAILURE, UNSPECIFIED; N18.9 - CHRONIC KIDNEY DISEASE, UNSPECIFIED SNOMED Code(s): 316350911 Comment: ? related to thiazide, poor oral intake, UTI. Straight cath in ER, about 50 ml drained. IV fluids, ceftriaxone. BMP 7/8. Chronic diabetic nephropathy. (2) UTI (urinary tract infection) Current Visit: Yes Status: Acute Comment: Straight cath in ER, about 50 ml drained. IV fluids, ceftriaxone. BMP 7/8. (3) Type II diabetes mellitus Current Visit: No Status: Acute Comment: Stop glipizide, continue detemir ( substitute Lantus in hospital). Lispro coverage. (4) Polymyalgia rheumatica Current Visit: No Status: Acute Code(s): M35.3 - POLYMYALGIA RHEUMATICA SNOMED Code(s): 05395841 Comment: Continue prednisone 5 mg daily.
[2019-01-22] MEDS: Insulin LISPRO* 1 UNITS UNIT SUBCUT SCH ×2 (16:00→21:17)
[2019-01-22] MEDS: Pantoprazole TAB * 40 MG TAB PO SCH (16:02)
[2019-01-22] MEDS: predniSONE TAB* 5 MG PO SCH (16:02)
[2019-01-22] MEDS ORDERED: Acetaminophen TAB* 325 MG PO PRN (17:08)
[2019-01-22] MEDS ORDERED: Ciprofloxacin 400MG IVPREMIX(* 400 MG/200 ML BAG IVPB SCH (18:00)
[2019-01-22] MEDS: NS 0.9% 1000 ML** 2,000 ML IV ONE ×2 (19:28→21:01)
[2019-01-22] MEDS: Heparin VIAL(*) 5000 UNITS/ML VIAL (FIVE THOUSAND) SUBCUT SCH (21:18)
[2019-01-22] MEDS: Metoprolol Tartrate TAB* 25 MG PO SCH (21:18)
[2019-01-23] MEDS ORDERED: NS 0.9% 1000 ML/HR X 1 BAG (TOTAL 1000 ML) IV ONE (00:30)
[2019-01-23] MEDS: Heparin VIAL(*) 5000 UNITS/ML VIAL (FIVE THOUSAND) SUBCUT SCH ×3 (06:08→21:03)
[2019-01-23] MEDS: NS 0.9% 1000 ML** 1,000 ML IV SCH (06:08)
--- NOTE | 2019-01-23 08:08 | PN ---
Subjective Date of Service: 01/23/19 Interval History: HOSPITALIST PROGRESS NOTE Patient seen and examined at bedside. Care reviewed and d/w Yecenia Grove RN. She feels much better this AM. States she was able to rest last night and has more energy. Ate 80-90% of her breakfast, denies N/V, was able to ambulate to the bathroom with 1 assist. Family History: Unchanged from Admission Social History: Unchanged from Admission Past Medical History: Unchanged from Admission Objective Active Medications: Acetaminophen (Tylenol Tab*) 650 mg PO Q4H PRN PRN Reason: TEMP GREATER THAN 101.5 F Last Admin: 01/22/19 17:23 Dose: 650 mg Atorvastatin Calcium (Lipitor*) 20 mg PO DAILY [facility] Calcitriol (Rocaltrol Cap*) 0.25 mcg PO MOWEFR [facility] Dextrose (D50w Syringe 50 Ml*) 12.5 gm IV PUSH .FOR FS < 60 - SS PRN PRN Reason: FS < 60 Folic Acid (Folvite Tab*) 1 mg PO DAILY [facility] Heparin Sodium (Porcine) (Heparin Vial(*)) 5,000 units SUBCUT Q8HR [facility] Last Admin: 01/23/19 06:08 Dose: 5,000 units Sodium Chloride (Ns 0.9% 1000 Ml) 1,000 mls @ 125 mls/hr IV PER RATE [facility] Last Admin: 01/23/19 06:08 Dose: 75 mls/hr Ciprofloxacin/Dextrose (Cipro 400 Mg Ivpremix(*)) 400 mg in 200 mls @ 200 mls/ hr IVPB Q24H [facility]; Protocol Last Admin: 01/22/19 18:42 Dose: 200 mls/hr Insulin Glargine (Lantus(*)) 15 units SUBCUT QAM [facility] Insulin Human Lispro (Humalog*) 0 units SUBCUT ACHS [facility]; Protocol Last Admin: 01/22/19 21:17 Dose: 2 unit Metoprolol Tartrate (Lopressor Tab*) 25 mg PO BID [facility] Last Admin: 01/22/19 21:18 Dose: 25 mg Pantoprazole Sodium (Protonix Tab*) 40 mg PO DAILY [facility] Last Admin: 01/22/19 16:02 Dose: 40 mg Prednisone (Deltasone Tab*) 5 mg PO DAILY [facility] Last Admin: 07/07/19 16:02 Dose: 5 mg Vital Signs - 8 hr 01/23/19 01/23/19 01:31 03:15 Temperature 97.5 F Pulse Rate 67 Respiratory 16 Rate Blood Pressure 103/45 84/36 (mmHg) Oxygen Devices in Use Now: None Appearance: Pleasant elderly lady sitting up in bed in NAD. Eyes: No Scleral Icterus Ears/Nose/Mouth/Throat: Mucous Membranes Moist Neck: Trachea Midline Respiratory: Symmetrical Chest Expansion and Respiratory Effort, Clear to Auscultation Cardiovascular: RRR - Normal S1 and S2 Abdominal: NL Sounds; No Tenderness; No Distention Extremities: - - Bilateral LE puffy, non pitting edema Neurological: Alert and Oriented x 3, NL Muscle Strength and Tone Result Diagrams: 01/23/19 08:43 01/23/19 08:43 Assess/Plan/Problems-Billing Assessment: Mrs Cordova is an 88yo F with PMH of PMR, type 2 DM, CKD stage, ACD, HTN, HLD; who presented to ED with c/o lethargy and weakness, found to have UTI, JAGDISH. - Patient Problems (1) UTI (urinary tract infection) Comment: - Present on admission. - Continue Ceftriaxone. - Urine culture growing E. coli - follow sensitivities. 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 - She was asymptomatic during the episode of hypotension, good mentation - it does not appear to be related to sepsis. - LA down to 0.5. - Increase prednisone to 5mg BID. (3) Acute on chronic renal failure Comment: - Likely pre renal in the setting of diuretic use, dehydration, and UTI - continue IVF and monitor. (4) Metabolic acidosis Comment: - Secondary to renal failure. - Change IVF to LR and buffer with Bicitra. (5) Type II diabetes mellitus Comment: - Glucose on the lower side this AM - was on glipizide as outpatient, held on admission. - Will hold long acting insulin for now and continue FS with Lispro SS. (6) Polymyalgia rheumatica Comment: - Stable. - Continue prednisone. (7) DVT prophylaxis Comment: - SQ heparin. (8) Full code status Status and Disposition: Change to inpatient.
[2019-01-23] MEDS: Insulin LISPRO* 1 UNITS UNIT SUBCUT SCH ×4 (08:18→21:04)
[2019-01-23] MEDS ORDERED: Insulin GLARGINE(*) 1 UNITS UNIT SUBCUT SCH (09:00)
[2019-01-23 09:04] LABS: Calcium 7.4 mg/dL (8.6-10.3); Sodium 139 mmol/L (135-145)
[2019-01-23 09:06] LABS: CO2 Carbon Dioxide 12 mmol/L (22-32)
[2019-01-23 09:07] LABS: Hematocrit 29 % (35-47); Hemoglobin 9.5 g/dL (12.0-16.0); Mean Corpuscular HGB Conc 33 g/dL (31-36); Mean Corpuscular Hemoglobin 28 pg (27-31); Mean Corpuscular Volume 85 fL (80-97); Red Blood Count 3.37 10^6 /uL (3.70-4.87); Red Cell Distribution Width 15 % (10-15); White Blood Count 14.1 10^3/uL (3.5-10.8)
[2019-01-23 09:10] LABS: BUN/Creatinine Ratio 16.6 (8-20); Blood Urea Nitrogen 52 mg/dL (6-24); EGFR Non-African American 14.1 (>60); Glucose 65 mg/dL (70-100)
[2019-01-23 09:11] LABS: Anion Gap 9 mmol/L (2-11); Chloride 118 mmol/L (101-111)
[2019-01-23] MEDS: Pantoprazole TAB * 40 MG TAB PO SCH (09:22)
[2019-01-23] MEDS: predniSONE TAB* 5 MG PO SCH ×2 (09:22→16:09)
[2019-01-23] MEDS: Atorvastatin* 20 MG TAB PO SCH (09:22)
[2019-01-23] MEDS: Folic Acid TAB* 1 MG PO SCH (09:22)
[2019-01-23] MEDS: Metoprolol Tartrate TAB* 25 MG PO SCH (09:23)
[2019-01-23 10:04] LABS: ABS Basophils 0.1 10^3/ul (0-0.2); ABS Eosinophils 0.2 10^3/ul (0-0.6); ABS Lymphocytes 1.2 10^3/ul (1.0-4.8); ABS Monocytes 1.4 10^3/ul (0-0.8); ABS Neutrophils 11.3 10^3/ul (1.5-7.7); Eosinophil % 1.4 %; Lymphocyte % 8.7 %; Nucleated Red Blood Cells % 0.2; Platelet Count Platelets clumped. 10^3/uL (150-450)
[2019-01-23] MEDS ORDERED: Magnesium Oxide TAB* 400 MG PO ONE (12:33)
[2019-01-23] MEDS: Sodium Citrate/Citric Acid* 15 ML UDC PO SCH ×3 (12:48→21:07)
[2019-01-23] MEDS: cefTRIAXone(*) 1 GM in NS 0.9% 50 ML* 50 ML IVPB SCH (12:51)
[2019-01-23] MEDS ORDERED: Calcitriol CAP* 0.25 MCG PO SCH (14:02)
[2019-01-23] MEDS: Lactated Ringers 1000 ML Bag* 1,000 ML IV SCH (21:03)
[2019-01-24] MEDS: Lactated Ringers 1000 ML Bag* 1,000 ML IV SCH (05:26)
[2019-01-24] MEDS: Heparin VIAL(*) 5000 UNITS/ML VIAL (FIVE THOUSAND) SUBCUT SCH ×3 (05:33→21:27)
--- NOTE | 2019-01-24 08:10 | PN ---
Sepsis Event Evaluation Vital Signs - Last 12 Hours: Vital Signs - 12 hr Temp Pulse Resp BP Pulse Ox 01/24/19 03:08 98.3 F 98 18 139/64 96 01/23/19 23:15 98.5 F 94 24 116/69 98 Lactic Acid: 01/22/19 01/23/19 12:23 08:43 Lactic Acid 2.8 H* 0.5 Assess/Plan/Problems-Billing Assessment: Mrs Cordova is an 88yo F with PMH of PMR, type 2 DM, CKD stage, ACD, HTN, HLD; who presented to ED with c/o lethargy and weakness, found to have UTI, JAGDISH. - Patient Problems (1) UTI (urinary tract infection) Comment: - Present on admission. - Continue Ceftriaxone. - Urine culture growing E. coli - follow sensitivities. 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 - She was asymptomatic during the episode of hypotension, good mentation - it does not appear to be related to sepsis. - LA down to 0.5. - Increase prednisone to 5mg BID. (3) Acute on chronic renal failure Comment: - Likely pre renal in the setting of diuretic use, dehydration, and UTI - continue IVF and monitor. (4) Metabolic acidosis Comment: - Secondary to renal failure. - Change IVF to LR and buffer with Bicitra. (5) Type II diabetes mellitus Comment: - Glucose on the lower side this AM - was on glipizide as outpatient, held on admission. - Will hold long acting insulin for now and continue FS with Lispro SS. (6) Polymyalgia rheumatica Comment: - Stable. - Continue prednisone. (7) DVT prophylaxis Comment: - SQ heparin. (8) Full code status Status and Disposition: Change to inpatient.
[2019-01-24 08:15] LABS: ABS Lymphocytes 1.9 10^3/ul (1.0-4.8); ABS Monocytes 1.3 10^3/ul (0-0.8); ABS Neutrophils 8.5 10^3/ul (1.5-7.7); Eosinophil % 0.3 %; Hematocrit 28 % (35-47); Hemoglobin 9.3 g/dL (12.0-16.0); Lymphocyte % 16.1 %; Mean Corpuscular HGB Conc 33 g/dL (31-36); Mean Corpuscular Hemoglobin 28 pg (27-31); Mean Corpuscular Volume 83 fL (80-97); Mean Platelet Volume 8.6 fL (7.4-10.4); Nucleated Red Blood Cells % 0.1; Platelet Count 151 10^3/uL (150-450); Red Blood Count 3.37 10^6 /uL (3.70-4.87); Red Cell Distribution Width 15 % (10-15); White Blood Count 11.8 10^3/uL (3.5-10.8)
[2019-01-24] MEDS: Insulin LISPRO* 1 UNITS UNIT SUBCUT SCH ×4 (08:50→20:45)
[2019-01-24] MEDS: predniSONE TAB* 5 MG PO SCH ×2 (08:52→16:33)
[2019-01-24] MEDS: Atorvastatin* 20 MG TAB PO SCH (08:52)
[2019-01-24] MEDS: Pantoprazole TAB * 40 MG TAB PO SCH (08:53)
[2019-01-24] MEDS: Folic Acid TAB* 1 MG PO SCH (08:53)
[2019-01-24 09:02] LABS: BUN/Creatinine Ratio 18.4 (8-20); Calcium 8.3 mg/dL (8.6-10.3); EGFR African American 29.2 (>60); EGFR Non-African American 24.1 (>60); Potassium 3.7 mmol/L (3.5-5.0)
[2019-01-24] MEDS: Sodium Citrate/Citric Acid* 15 ML UDC PO SCH ×3 (10:05→20:46)
--- NOTE | 2019-01-24 11:02 | PN ---
Subjective Date of Service: 01/24/19 Interval History: HOSPITALIST PROGRESS NOTE Patient seen and examined at bedside. Care reviewed and d/w Yecenia Grove RN. She feels better today. Had a good night of sleep, appetite is preserved, denies urinary complaints. Family History: Unchanged from Admission Social History: Unchanged from Admission Past Medical History: Unchanged from Admission Objective Active Medications: Acetaminophen (Tylenol Tab*) 650 mg PO Q4H PRN PRN Reason: TEMP GREATER THAN 101.5 F Last Admin: 01/22/19 17:23 Dose: 650 mg Atorvastatin Calcium (Lipitor*) 20 mg PO DAILY [facility] Last Admin: 01/24/19 08:52 Dose: 20 mg Calcitriol (Rocaltrol Cap*) 0.25 mcg PO MOWEFR [facility] Last Admin: 01/23/19 14:52 Dose: 0.25 mcg Citric Acid/Sodium Citrate (Bicitra*) 15 ml PO TID [facility] Last Admin: 01/24/19 10:05 Dose: 15 ml Dextrose (D50w Syringe 50 Ml*) 12.5 gm IV PUSH .FOR FS < 60 - SS PRN PRN Reason: FS < 60 Folic Acid (Folvite Tab*) 1 mg PO DAILY [facility] Last Admin: 01/24/19 08:53 Dose: 1 mg Heparin Sodium (Porcine) (Heparin Vial(*)) 5,000 units SUBCUT Q8HR [facility] Last Admin: 01/24/19 05:33 Dose: 5,000 units Heparin Sodium (Porcine) (Heparin Flush Picc/Ml/Cvc(*)) 1 - 3 ml FLUSH 0600, 1800 [facility]; Protocol Last Admin: 01/24/19 05:35 Dose: Not Given Ceftriaxone Sodium 1 gm/ (Sodium Chloride) 50 mls @ 200 mls/hr IVPB Q24H [facility] Last Admin: 01/23/19 12:51 Dose: 200 mls/hr Insulin Human Lispro (Humalog*) 0 units SUBCUT ACHS [facility]; Protocol Last Admin: 01/24/19 08:50 Dose: 4 unit Pantoprazole Sodium (Protonix Tab*) 40 mg PO DAILY [facility] Last Admin: 01/24/19 08:53 Dose: 40 mg Prednisone (Deltasone Tab*) 5 mg PO 0800,1700 [facility] Last Admin: 01/24/19 08:52 Dose: 5 mg Vital Signs - 8 hr 07/09/19 07/09/19 03:08 07:15 Temperature 98.3 F 98.5 F Pulse Rate 98 87 Respiratory 18 20 Rate Blood Pressure 139/64 142/66 (mmHg) O2 Sat by Pulse 96 100 Oximetry Oxygen Devices in Use Now: None Appearance: Pleasant elderly lady sitting up in a recliner in NAD. Eyes: No Scleral Icterus Ears/Nose/Mouth/Throat: Mucous Membranes Moist Neck: Trachea Midline Respiratory: Symmetrical Chest Expansion and Respiratory Effort, Clear to Auscultation Cardiovascular: RRR - Normal S1 and S2 Abdominal: NL Sounds; No Tenderness; No Distention Extremities: - - Bilateral LE edema Neurological: Alert and Oriented x 3, NL Muscle Strength and Tone Result Diagrams: 01/24/19 08:00 01/24/19 08:00 Microbiology and Other Data: Microbiology 01/22/19 12:08 Urine Culture - Final Urine Klebsiella Pneumoniae Escherichia Coli 01/22/19 19:47 Blood Culture - Preliminary Blood Venous No Growth Day 1 01/22/19 17:55 Aerobic Blood Culture - Preliminary Blood Venous No Growth Day 1 Anaerobic Blood Culture - Preliminary No Growth Day 1 Assess/Plan/Problems-Billing Assessment: - Patient Problems (1) UTI (urinary tract infection) Comment: - Present on admission. - Continue Ceftriaxone. - Urine culture growing E. coli - follow sensitivities. 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 - She was asymptomatic during the episode of hypotension, good mentation - it does not appear to be related to sepsis. - LA down to 0.5. - Responding well to prednisone to 5mg BID. (3) Acute on chronic renal failure Comment: - Likely pre renal in the setting of diuretic use, dehydration, and UTI - improving. - D/c IVF and encourage PO intake. (4) Metabolic acidosis Comment: - Secondary to renal failure. - Improving - continue Bicitra. (5) Type II diabetes mellitus Comment: - Glucose trending up. - Continue Lispro SS and add low dose Lantus. (6) Polymyalgia rheumatica Comment: - Stable. - Continue prednisone. (7) DVT prophylaxis Comment: - SQ heparin. (8) Full code status Status and Disposition: Anticipate d/c in AM if she continues to improve and does well with PT.
[2019-01-24] MEDS ORDERED: Insulin GLARGINE(*) 1 UNITS UNIT SUBCUT SCH (12:00)
[2019-01-24] MEDS: cefTRIAXone(*) 1 GM in NS 0.9% 50 ML* 50 ML IVPB SCH (13:15)
[2019-01-25] MEDS: Heparin VIAL(*) 5000 UNITS/ML VIAL (FIVE THOUSAND) SUBCUT SCH (05:44)
[2019-01-25] MEDS ORDERED: ceFUROXime TAB(*) 250 MG PO ONE (08:39)
[2019-01-25] MEDS: Insulin LISPRO* 1 UNITS UNIT SUBCUT SCH (08:56)
[2019-01-25] MEDS: predniSONE TAB* 5 MG PO SCH (08:58)
[2019-01-25] MEDS: Pantoprazole TAB * 40 MG TAB PO SCH (08:58)
[2019-01-25] MEDS: Sodium Citrate/Citric Acid* 15 ML UDC PO SCH (08:58)
[2019-01-25] MEDS: Atorvastatin* 20 MG TAB PO SCH (08:58)
[2019-01-25] MEDS: Folic Acid TAB* 1 MG PO SCH (08:58)
[2019-01-25 09:00] VITALS: BP 145/66
--- NOTE | 2019-01-25 22:05 | DS ---
CC: Dr. Martin * DISCHARGE SUMMARY: DATE OF ADMISSION: 01/22/19 DATE OF DISCHARGE: 01/25/19 PRIMARY CARE PROVIDER: Dr. Martin. DISCHARGE DIAGNOSES: 1. Escherichia coli urinary tract infection, present admission, not Allen catheter related. 2. Hypotension secondary to adrenal insufficiency. 3. Acute kidney injury. 4. Metabolic acidosis. SECONDARY DIAGNOSES: 1. Polymyalgia rheumatica. 2. Type 2 diabetes. 3. Chronic kidney disease stage III. 4. Anemia of chronic disease. 5. Hypertension. 6. Hyperlipidemia. MEDICATION LIST: 1. Acetaminophen 650 mg p.o. q.4 hours p.r.n. pain or fever. 2. Calcitriol 0.25 mcg p.o. Mondays, Wednesdays, Fridays. 3. Atorvastatin 20 mg p.o. daily. 4. Loperamide 2 mg p.o. q.6 hours p.r.n. for diarrhea, maximum daily dose 4 capsules. 5. Levemir 15 units subcutaneous daily. 6. Chlorothiazide 250 mg p.o. daily. 7. Omeprazole 20 mg p.o. daily. 8. Metoprolol tartrate 25 mg p.o. b.i.d. 9. Folic acid 1 mg p.o. daily. New medications: 1. Cefuroxime 250 mg p.o. b.i.d. for 5 more days. 2. Bicitra 15 mL p.o. b.i.d. Medication change: 1. Prednisone was increased to 5 mg p.o. b.i.d. for 5 days, then 5 mg in the morning and 2.5 mg in the evening for 5 days, then back to your usual dose of 5 mg daily. 2. Glipizide was decreased from 10 mg b.i.d. to 2.5 mg p.o. daily if morning glucose greater than 200. 3. Amlodipine and lisinopril were discontinued for now. HOSPITAL COURSE: Mrs. Cordova is an 89-year-old female with a past medical history stated above that presented to the emergency room on 01/22/19 with family members complaining of lethargy, weakness, and that she usually acts that way when she has an UTI. For more details about her presentation, I refer you to her history and physical. The patient had an abnormal urinalysis and initial creatinine of 4.2 and white cell count was 13.7. She was afebrile and was not tachycardic. She was started on antibiotics and urine culture grew E. coli greater than 100,000 colonies resistant to ampicillin and intermediate to nitrofurantoin. Renal ultrasound was performed and it showed a left renal cyst, but otherwise was a normal renal ultrasound. The patient had progressive improvement of her symptoms with antibiotics. She did have hypotension at the beginning of the admission and it was likely related to relative adrenal insufficiency in the setting of chronic steroid use. It did not appear to be related to sepsis. The patient had resolution of her symptoms. She is felt to be back to her baseline. Her creatinine trended down to 1.96 and this is pretty close to her usual baseline. Initially in the hospital, all the patient's antihypertensives had been held, but as her blood pressure continues to trend up, her metoprolol was resumed and she did develop some lower extremity edema with IV fluid resuscitation, so I am resuming her diuretic too. Amlodipine and lisinopril are on hold for now, but I suspect they would need to be resumed in the near future as she continues to recover. The patient also had mild hypoglycemia on admission, likely secondary to glipizide use in the setting of worsening renal failure. Now that she is recovering, the plan is for her to continue her usual dose of Levemir and if her morning glucose is greater than 200, she will take 2.5 mg of glipizide. This is another medication that I suspect will probably need to be increased as she continues to recover. The patient had improvement of her symptoms. She is felt to be at baseline and she was medically stable to be discharged home today to follow up with Dr. Martin as outpatient. I did call Dr. Martin and updated her about the patient' s hospital stay and plan for followup after discharge. The patient will have a BMP done on 01/31/19 and the results will be sent to Dr. Martin. PHYSICAL EXAMINATION: Vital Signs: Temperature 98.5, heart rate is 86, respiratory rate is 18, oxygen saturation 99% on room air, blood pressure is 145 /66. General: The patient is a pleasant, elderly lady, sitting up in bed, in no acute distress. CVS: Normal S1, S2. Regular rate and rhythm. Chest: Breath sounds present bilaterally with no added sounds. Abdomen is soft, nontender. Bowel sounds are present. Extremities: There is bilateral mild lower extremity edema. No calf tenderness. Neuro: She is alert and oriented x3. Able to move all 4 extremities. DIET: Heart healthy, consistent carb diet. ACTIVITIES: As tolerated. DISPOSITION: To home. STATUS WHILE IN THE HOSPITAL: Inpatient. CONDITION AT THE TIME OF DISCHARGE: Fair. Please keep in mind this is a summarized version of this patient's hospital stay. If you need more information, please feel free to call me at [phone] or please obtain the full medical records. TIME SPENT: Approximately 45 minutes was spent to complete this discharge. [id number]/CPS #: [id number] NANDINI
== END 2019-01-25 12:15 | disposition home health service (06) | DRG 690 ==
LOC: ED 11:26 → MED 13:59 → OBSVTOIN 01-23 07:10
PROVIDERS: ADMIT Internal Medicine; ATTEND Internal Medicine
PROC: 02HV33Z Insertion of Infusion Device into Superior Vena Cava, Percutaneous Approach (ICD-10-PCS; principal; 2019-01-23)
DX: N39.0 Urinary tract infection, site not specified (principal); N17.9 Acute kidney failure, unspecified; E87.2 Acidosis; E27.3 Drug-induced adrenocortical insufficiency; B96.20 Unspecified Escherichia coli [E. coli] as the cause of diseases classified elsewhere; E11.22 Type 2 diabetes mellitus with diabetic chronic kidney disease; E78.00 Pure hypercholesterolemia, unspecified; I12.9 Hypertensive chronic kidney disease with stage 1 through stage 4 chronic kidney disease, or unspecified chronic kidney disease; N18.3 Chronic kidney disease, stage 3 (moderate); E78.5 Hyperlipidemia, unspecified; M35.3 Polymyalgia rheumatica; H91.90 Unspecified hearing loss, unspecified ear; F03.90 Unspecified dementia, unspecified severity, without behavioral disturbance, psychotic disturbance, mood disturbance, and anxiety; Z96.1 Presence of intraocular lens; E83.42 Hypomagnesemia; E11.21 Type 2 diabetes mellitus with diabetic nephropathy; D63.1 Anemia in chronic kidney disease; E11.649 Type 2 diabetes mellitus with hypoglycemia without coma; T38.0X5A Adverse effect of glucocorticoids and synthetic analogues, initial encounter; N28.1 Cyst of kidney, acquired; E87.6 Hypokalemia; Z91.018 Allergy to other foods; Z87.440 Personal history of urinary (tract) infections; Z98.41 Cataract extraction status, right eye; Z87.891 Personal history of nicotine dependence; Z79.84 Long term (current) use of oral hypoglycemic drugs; Y92.9 Unspecified place or not applicable
CPT/HCPCS: 36415; 76775; 80048; 80053; 81003; 81015; 82533; 83605; 83690; 83735; 85025; 86140; 87040; 87077; 87086; 87186; 99284; A9270-GY; G0378; G8978-GP-CJ; G8979-GP-CI; J0696; J0744; J1644; J2405; J3475; J7512

== ENCOUNTER 2020-05-28 04:11 | Inpatient (IN) ==
[2020-05-28] MEDS ORDERED: cefTRIAXone 2 GM ADDV.VIAL 2 GM in NS 0.9% 100 ml BAG 100 ML IVPB ONE (04:51)
[2020-05-28] MEDS ORDERED: NS 0.9% 1000 ml BAG 1,000 ML IV ONE ×3 (04:51→06:24)
[2020-05-28 05:09] LABS: INR 1.1 (0.82-1.09)
[2020-05-28 05:16] LABS: Albumin 3.8 g/dL (3.2-5.2); Alkaline Phosphatase 553 U/L (34-104); Anion Gap 11 mmol/L (2-11); BUN/Creatinine Ratio 21.7 (8-20); Blood Urea Nitrogen 52 mg/dL (6-24); CO2 Carbon Dioxide 26 mmol/L (22-32); Calcium 9.8 mg/dL (8.6-10.3); Chloride 102 mmol/L (101-111); EGFR African American 23.1 (>60); EGFR Non-African American 19.1 (>60); Globulin 3.8 g/dL (2-4); Glucose 174 mg/dL (70-100); Potassium 3.8 mmol/L (3.5-5.0); Sodium 139 mmol/L (135-145); Total Protein 7.6 g/dL (6.4-8.9)
[2020-05-28 05:22] LABS: ABS Lymphocytes 0.6 10^3/ul (1.0-4.8); ABS Monocytes 1.1 10^3/ul (0-0.8); ABS Neutrophils 13.5 10^3/ul (1.5-7.7); Eosinophil % 0.1 %; Hematocrit 34 % (35-47); Hemoglobin 11.2 g/dL (12.0-16.0); Lymphocyte % 4.2 %; Mean Corpuscular HGB Conc 33 g/dL (31-36); Mean Corpuscular Hemoglobin 27 pg (27-31); Mean Corpuscular Volume 82 fL (80-97); Mean Platelet Volume 9.2 fL (7.4-10.4); Nucleated Red Blood Cells % 0.1; Platelet Count 176 10^3/uL (150-450); Red Blood Count 4.09 10^6 /uL (3.70-4.87); Red Cell Distribution Width 17 % (10-15); White Blood Count 15.2 10^3/uL (3.5-10.8)
[2020-05-28 05:32] LABS: Troponin I 0.31 ng/mL (<0.03)
[2020-05-28 05:34] LABS: ALT 1350 U/L (7-52); AST 2696 U/L (13-39)
[2020-05-28 05:43] LABS: Urine Appearance Cloudy; Urine Bilirubin Negative (Negative); Urine Blood 2+ (Negative); Urine Color Amber; Urine Glucose Negative (Negative); Urine Ketones Negative (Negative); Urine Nitrite Negative (Negative); Urine Protein 2+(100 mg/dL) (Negative); Urine Urobilinogen Negative (Negative)
[2020-05-28 05:58] LABS: Urine Bacteria 3+ (Absent); Urine Red Blood Cell 2+(6-10/hpf) (Absent); Urine Squamous Epithelial Cell Present (Absent); Urine White Blood Cell 3+(>20/hpf) (Absent)
[2020-05-28] MEDS ORDERED: Vancomycin 500 MG in NS 0.9% 250 ml 250 ML IVPB ONE (06:26)
[2020-05-28] MEDS ORDERED: Piperacillin/Tazobac ADVAN 3.375 GM in NS 0.9% 100 ml BAG 100 ML IVPB ONE (06:26)
[2020-05-28] MEDS ORDERED: NS 0.9% 250 ml 250 ML ONE (07:17)
[2020-05-28 08:32] LABS: Indirect Bilirubin 0.5 mg/dL (0.3-1.0)
[2020-05-28 08:49] LABS: Hepatitis B Surface Antigen Nonreactive (Nonreactive)
[2020-05-28 08:55] LABS: Hepatitis A Ab IgM Negative (Negative); Hepatitis B Core IgM Nonreactive (Nonreactive); Lipase 40 U/L (11.0-82.0)
[2020-05-28 09:07] LABS: Hepatitis C Antibody Negative (Negative)
[2020-05-28 10:33] LABS: Urine Appearance Turbid; Urine Bilirubin Negative (Negative); Urine Blood 3+ (Negative); Urine Color Amber; Urine Glucose Negative (Negative); Urine Ketones Negative (Negative); Urine Nitrite Negative (Negative); Urine Protein 2+(100 mg/dL) (Negative); Urine Specific Gravity 1.012 (1.010-1.030); Urine Urobilinogen Negative (Negative)
[2020-05-28 10:52] LABS: Troponin I 0.51 ng/mL (<0.03)
[2020-05-28 10:55] LABS: Urine Bacteria 2+ (Absent); Urine Red Blood Cell 3+(>10/hpf) (Absent); Urine Squamous Epithelial Cell Present (Absent); Urine White Blood Cell 3+(>20/hpf) (Absent)
[2020-05-28] MEDS ORDERED: Zosyn per Pharmacy NOTE FOLLOW UP SCH (11:00)
[2020-05-28 11:17] LABS: Acetaminophen < 15 mcg/mL
[2020-05-28 11:49] LABS: Alcohol, S < 10 mg/dL (<10)
[2020-05-28] MEDS: Heparin 5000 UNITS/ML 1 mL VIAL SUBCUT SCH ×2 (14:02→23:23)
[2020-05-28] MEDS: ZOSYN 3.375 GM Q12H per EXTENDED INFUSION IV SCH (14:02)
[2020-05-28 15:03] LABS: Troponin I 0.63 ng/mL (<0.03)
[2020-05-28] MEDS: Dextrose 50% Syringe 50 ml 25 GM/50 ML SYRINGE IV PUSH PRN ×2 (16:58→23:55)
[2020-05-28 19:14] LABS: Troponin I 0.48 ng/mL (<0.03)
[2020-05-29] MEDS: Insulin GLARGINE 100 un/ml 10 ml VIAL SUBCUT SCH ×2 (00:45→22:47)
[2020-05-29] MEDS: ZOSYN 3.375 GM Q12H per EXTENDED INFUSION IV SCH ×2 (01:33→12:54)
[2020-05-29] MEDS ORDERED: Furosemide 20 mg/2 ml IV VIAL IV ONE (03:07)
[2020-05-29] MEDS: Heparin 5000 UNITS/ML 1 mL VIAL SUBCUT SCH ×3 (06:10→22:46)
[2020-05-29] MEDS: Sodium Chloride(INHALANT)0.9% 5 ML NEB.SOLN INH SCH (06:41)
[2020-05-29] MEDS ORDERED: Sodium Chloride(INHALANT)0.9% 5 ML NEB.SOLN INH PRN (06:47)
[2020-05-29 07:12] LABS: ABS Eosinophils 0.1 10^3/ul (0-0.6); ABS Lymphocytes 1.1 10^3/ul (1.0-4.8); ABS Neutrophils 12.4 10^3/ul (1.5-7.7); Eosinophil % 0.6 %; Hematocrit 31 % (35-47); Hemoglobin 10.3 g/dL (12.0-16.0); Lymphocyte % 7.5 %; Mean Corpuscular HGB Conc 33 g/dL (31-36); Mean Corpuscular Hemoglobin 27 pg (27-31); Mean Corpuscular Volume 82 fL (80-97); Platelet Count 142 10^3/uL (150-450); Red Cell Distribution Width 17 % (10-15); White Blood Count 14.5 10^3/uL (3.5-10.8)
[2020-05-29 07:37] LABS: Albumin 3.1 g/dL (3.2-5.2); Albumin/Globulin Ratio 0.9 (1-3); BUN/Creatinine Ratio 17.3 (8-20); Calcium 8.8 mg/dL (8.6-10.3); EGFR African American 23.4 (>60); EGFR Non-African American 19.3 (>60); Globulin 3.5 g/dL (2-4); Indirect Bilirubin 0.8 mg/dL (0.3-1.0); Potassium 3.5 mmol/L (3.5-5.0); Total Bilirubin 3.8 mg/dL (0.2-1.0); Total Protein 6.6 g/dL (6.4-8.9)
[2020-05-29] MEDS: Dextrose 50% Syringe 50 ml 25 GM/50 ML SYRINGE IV PUSH PRN (08:55)
[2020-05-30] MEDS: ZOSYN 3.375 GM Q12H per EXTENDED INFUSION IV SCH ×2 (02:00→12:57)
[2020-05-30] MEDS ORDERED: Metoprolol Tartrate 5 mg VIAL 5 ml VIAL (1 mg/ml) IV ONE ×2 (04:09→06:24)
[2020-05-30] MEDS: Heparin 5000 UNITS/ML 1 mL VIAL SUBCUT SCH ×3 (04:34→22:45)
[2020-05-30 06:23] LABS: ABS Basophils 0.1 10^3/ul (0-0.2); ABS Eosinophils 0.1 10^3/ul (0-0.6); ABS Lymphocytes 1.6 10^3/ul (1.0-4.8); ABS Neutrophils 9.6 10^3/ul (1.5-7.7); Eosinophil % 0.7 %; Hematocrit 31 % (35-47); Hemoglobin 10.2 g/dL (12.0-16.0); Lymphocyte % 12.6 %; Mean Corpuscular HGB Conc 34 g/dL (31-36); Mean Corpuscular Hemoglobin 27 pg (27-31); Mean Corpuscular Volume 82 fL (80-97); Mean Platelet Volume 9.2 fL (7.4-10.4); Platelet Count 145 10^3/uL (150-450); Red Blood Count 3.73 10^6 /uL (3.70-4.87); Red Cell Distribution Width 17 % (10-15); White Blood Count 12.3 10^3/uL (3.5-10.8)
[2020-05-30 06:45] LABS: BUN/Creatinine Ratio 14.4 (8-20); Calcium 8.8 mg/dL (8.6-10.3); EGFR African American 22.7 (>60); EGFR Non-African American 18.8 (>60); Potassium 3.1 mmol/L (3.5-5.0)
[2020-05-30 07:14] LABS: TSH Ultra Thyroid Stim Horm 1.45 mcIU/mL (0.34-5.60)
[2020-05-30 07:16] LABS: Free T4 1.12 ng/dL (0.61-1.12)
[2020-05-30] MEDS: Potassium Chlor 20 meq TAB.ER PO SCH ×3 (09:10→22:45)
[2020-05-30 15:09] LABS: Albumin 2.8 g/dL (3.2-5.2); Indirect Bilirubin 1.6 mg/dL (0.3-1.0)
[2020-05-30 15:15] LABS: Globulin 2.9 g/dL (2-4); Total Protein 5.7 g/dL (6.4-8.9)
[2020-05-30] MEDS: Insulin GLARGINE 100 un/ml 10 ml VIAL SUBCUT SCH (22:52)
[2020-05-31] MEDS: ZOSYN 3.375 GM Q12H per EXTENDED INFUSION IV SCH ×2 (01:28→13:20)
[2020-05-31 05:29] LABS: ABS Basophils 0.1 10^3/ul (0-0.2); ABS Eosinophils 0.1 10^3/ul (0-0.6); ABS Lymphocytes 2.3 10^3/ul (1.0-4.8); ABS Monocytes 1.1 10^3/ul (0-0.8); ABS Neutrophils 9.6 10^3/ul (1.5-7.7); Eosinophil % 0.4 %; Hematocrit 26 % (35-47); Hemoglobin 8.5 g/dL (12.0-16.0); Lymphocyte % 17.7 %; Mean Corpuscular HGB Conc 33 g/dL (31-36); Mean Corpuscular Hemoglobin 27 pg (27-31); Mean Corpuscular Volume 82 fL (80-97); Mean Platelet Volume 9.4 fL (7.4-10.4); Platelet Count 138 10^3/uL (150-450); Red Blood Count 3.13 10^6 /uL (3.70-4.87); Red Cell Distribution Width 17 % (10-15); White Blood Count 13.1 10^3/uL (3.5-10.8)
[2020-05-31] MEDS: Heparin 5000 UNITS/ML 1 mL VIAL SUBCUT SCH ×3 (05:41→20:06)
[2020-05-31 05:56] LABS: Albumin 2.7 g/dL (3.2-5.2); Albumin/Globulin Ratio 0.8 (1-3); BUN/Creatinine Ratio 15.8 (8-20); Calcium 8.4 mg/dL (8.6-10.3); EGFR African American 20.5 (>60); EGFR Non-African American 16.9 (>60); Globulin 3.2 g/dL (2-4); Indirect Bilirubin 1.2 mg/dL (0.3-1.0); Potassium 3.9 mmol/L (3.5-5.0); Total Bilirubin 4.9 mg/dL (0.2-1.0); Total Protein 5.9 g/dL (6.4-8.9)
[2020-05-31] MEDS: Potassium Chlor 20 meq TAB.ER PO SCH ×3 (07:36→20:05)
[2020-05-31] MEDS: Insulin GLARGINE 100 un/ml 10 ml VIAL SUBCUT SCH (20:06)
[2020-06-01] MEDS: ZOSYN 3.375 GM Q12H per EXTENDED INFUSION IV SCH ×2 (00:55→12:39)
[2020-06-01] MEDS: Heparin 5000 UNITS/ML 1 mL VIAL SUBCUT SCH ×3 (05:10→20:14)
[2020-06-01 07:30] LABS: Albumin 2.7 g/dL (3.2-5.2); Albumin/Globulin Ratio 0.8 (1-3); BUN/Creatinine Ratio 16.5 (8-20); Calcium 8.6 mg/dL (8.6-10.3); EGFR African American 22.7 (>60); EGFR Non-African American 18.8 (>60); Globulin 3.4 g/dL (2-4); Indirect Bilirubin 1.5 mg/dL (0.3-1.0); Potassium 4.6 mmol/L (3.5-5.0); Total Bilirubin 4.2 mg/dL (0.2-1.0); Total Protein 6.1 g/dL (6.4-8.9)
[2020-06-01 07:40] LABS: Hematocrit 25 % (35-47); Hemoglobin 8.5 g/dL (12.0-16.0); Mean Corpuscular HGB Conc 34 g/dL (31-36); Mean Corpuscular Hemoglobin 27 pg (27-31); Mean Corpuscular Volume 81 fL (80-97); Mean Platelet Volume 9.5 fL (7.4-10.4); Platelet Count 143 10^3/uL (150-450); Red Cell Distribution Width 16 % (10-15); White Blood Count 11.7 10^3/uL (3.5-10.8)
[2020-06-01] MEDS ORDERED: Fidaxomicin 200 mg TAB (NF) PO SCH (09:00)
[2020-06-01 09:15] LABS: ABS Basophils 0.1 10^3/ul (0-0.2); ABS Eosinophils 0.1 10^3/ul (0-0.6); ABS Lymphocytes 4.7 10^3/ul (1.0-4.8); ABS Monocytes 0.8 10^3/ul (0-0.8); Eosinophil % 0.6 %; Lymphocyte % 40.3 %; Microcytosis 1+; Nucleated Red Blood Cells % 0.2
[2020-06-01] MEDS: Potassium Chlor 20 meq TAB.ER PO SCH ×3 (09:37→20:14)
[2020-06-01] MEDS: Insulin GLARGINE 100 un/ml 10 ml VIAL SUBCUT SCH (20:14)
[2020-06-02] MEDS: ZOSYN 3.375 GM Q12H per EXTENDED INFUSION IV SCH ×2 (00:38→12:38)
[2020-06-02] MEDS: Heparin 5000 UNITS/ML 1 mL VIAL SUBCUT SCH ×3 (05:24→20:58)
[2020-06-02 07:32] LABS: Albumin 3.1 g/dL (3.2-5.2); Calcium 9.1 mg/dL (8.6-10.3); Indirect Bilirubin 1.4 mg/dL (0.3-1.0); Potassium 4.9 mmol/L (3.5-5.0); Total Bilirubin 3.6 mg/dL (0.2-1.0)
[2020-06-02 07:38] LABS: Albumin/Globulin Ratio 0.9 (1-3); BUN/Creatinine Ratio 14.6 (8-20); EGFR African American 27.5 (>60); EGFR Non-African American 22.7 (>60); Globulin 3.6 g/dL (2-4); Total Protein 6.7 g/dL (6.4-8.9)
[2020-06-02 08:59] LABS: Hematocrit 28 % (35-47); Hemoglobin 9.2 g/dL (12.0-16.0); Mean Corpuscular HGB Conc 33 g/dL (31-36); Mean Corpuscular Hemoglobin 28 pg (27-31); Mean Corpuscular Volume 84 fL (80-97); Mean Platelet Volume 9.6 fL (7.4-10.4); Platelet Count 164 10^3/uL (150-450); Red Cell Distribution Width 17 % (10-15); White Blood Count 9.7 10^3/uL (3.5-10.8)
[2020-06-02] MEDS: Potassium Chlor 20 meq TAB.ER PO SCH ×3 (09:29→20:58)
[2020-06-02 09:41] LABS: ABS Basophils 0.1 10^3/ul (0-0.2); ABS Eosinophils 0.2 10^3/ul (0-0.6); ABS Lymphocytes 1.7 10^3/ul (1.0-4.8); ABS Monocytes 1.2 10^3/ul (0-0.8); ABS Neutrophils 6.4 10^3/ul (1.5-7.7); Eosinophil % 2.3 %; Lymphocyte % 17.6 %; Nucleated Red Blood Cells % 0.3
[2020-06-02] MEDS: Insulin GLARGINE 100 un/ml 10 ml VIAL SUBCUT SCH (22:25)
[2020-06-03] MEDS: ZOSYN 3.375 GM Q12H per EXTENDED INFUSION IV SCH ×2 (00:41→14:03)
[2020-06-03] MEDS: Heparin 5000 UNITS/ML 1 mL VIAL SUBCUT SCH ×3 (06:51→22:56)
[2020-06-03] MEDS: Potassium Chlor 20 meq TAB.ER PO SCH ×3 (08:54→20:19)
[2020-06-03] MEDS: Insulin GLARGINE 100 un/ml 10 ml VIAL SUBCUT SCH (20:19)
[2020-06-04] MEDS: ZOSYN 3.375 GM Q12H per EXTENDED INFUSION IV SCH ×2 (01:27→13:28)
[2020-06-04] MEDS: Heparin 5000 UNITS/ML 1 mL VIAL SUBCUT SCH ×2 (06:06→13:30)
[2020-06-04] MEDS: Potassium Chlor 20 meq TAB.ER PO SCH ×2 (08:46→13:30)
[2020-06-04 11:37] VITALS: BP 148/62
== END 2020-06-04 15:45 | disposition home or self-care (01) | DRG 871 ==
LOC: ED 04:11 → MED 08:59
PROVIDERS: ADMIT Internal Medicine; ATTEND Internal Medicine

== ENCOUNTER 2020-08-26 20:03 | Inpatient (IN) ==
[2020-08-26] MEDS ORDERED: NS 0.9% 1000 ml BAG 1,000 ML IV ONE (20:21)
[2020-08-26 22:09] LABS: ALT 8 U/L (7-52); Albumin 3.8 g/dL (3.2-5.2); Alkaline Phosphatase 79 U/L (34-104); Blood Urea Nitrogen 92 mg/dL (6-24); C Reactive Protein 8.16 mg/L (<8.01); CO2 Carbon Dioxide 18 mmol/L (22-32); Calcium 9.8 mg/dL (8.6-10.3); Chloride 83 mmol/L (101-111); EGFR African American 15.4 (>60); EGFR Non-African American 12.7 (>60); Globulin 3.9 g/dL (2-4); Total Protein 7.7 g/dL (6.4-8.9)
[2020-08-26 22:30] LABS: TSH Ultra Thyroid Stim Horm 1.34 mcIU/mL (0.34-5.60)
[2020-08-26 22:41] LABS: Anion Gap 17 mmol/L (2-11); Troponin I 0.17 ng/mL (<0.03)
[2020-08-26 23:03] LABS: Influenza A Molecular Negative (Negative); Influenza B Molecular Negative (Negative)
[2020-08-27 00:01] LABS: Magnesium 2.8 mg/dL (1.9-2.7)
[2020-08-27 00:06] LABS: Potassium Redraw 6.4 mmol/L (3.5-5.0)
[2020-08-27 00:28] LABS: ABS Lymphocytes 0.6 10^3/ul (1.0-4.8); ABS Monocytes 0.7 10^3/ul (0-0.8); ABS Neutrophils 10.7 10^3/ul (1.5-7.7); Lymphocyte % 5.2 %; Mean Corpuscular HGB Conc 31 g/dL (31-36); Mean Corpuscular Hemoglobin 26 pg (27-31); Mean Corpuscular Volume 85 fL (80-97); Mean Platelet Volume 10.7 fL (7.4-10.4); Nucleated Red Blood Cells % 0.2; Platelet Count 201 10^3/uL (150-450); Red Blood Count 4.85 10^6 /uL (3.70-4.87); Red Cell Distribution Width 17 % (10-15)
[2020-08-27 00:32] LABS: Hematocrit 40 % (35-47); Hemoglobin 12.5 g/dL (12.0-16.0)
[2020-08-27] MEDS ORDERED: Patiromer POWDER 8.4 GM PAK PO SCH (01:00)
[2020-08-27] MEDS: Insulin Infusion 100unit/100mL 100 UNIT/100 ML BAG IV ONE ×3 (01:01→01:08)
[2020-08-27 01:32] LABS: Erythrocyte Sed Rate 48 mm/Hr (0-29)
[2020-08-27] MEDS ORDERED: Lactated Ringers 1000 ml BAG 500 ML IV ONE (02:00)
[2020-08-27] MEDS ORDERED: Metoprolol Tartrate 5 mg VIAL 5 ml VIAL (1 mg/ml) IV ONE (02:18)
[2020-08-27 02:33] LABS: Anion Gap 16 mmol/L (2-11); CO2 Carbon Dioxide 16 mmol/L (22-32); Calcium 9.2 mg/dL (8.6-10.3); Chloride 93 mmol/L (101-111); Magnesium 2.6 mg/dL (1.9-2.7); Potassium 4.9 mmol/L (3.5-5.0); Sodium 125 mmol/L (135-145)
[2020-08-27 02:38] LABS: BUN/Creatinine Ratio 26.3 (8-20); Blood Urea Nitrogen 85 mg/dL (6-24); EGFR African American 16.4 (>60); EGFR Non-African American 13.5 (>60)
[2020-08-27 02:40] LABS: Glucose 791 mg/dL (70-100); Glucose Confirmatory 791 mg/dL (70-100)
[2020-08-27 03:02] LABS: Troponin I 0.23 ng/mL (<0.03)
[2020-08-27 03:03] LABS: Urine Appearance Cloudy; Urine Bilirubin Negative (Negative); Urine Blood 1+ (Negative); Urine Color Straw; Urine Glucose 3+(>=500 mg/dL) (Negative); Urine Ketones Trace (Negative); Urine Nitrite Negative (Negative); Urine Protein Negative (Negative); Urine Specific Gravity 1.016 (1.010-1.030); Urine Urobilinogen Negative (Negative)
[2020-08-27 03:51] LABS: Glucose Confirmatory 610 mg/dL (70-100)
[2020-08-27 03:59] LABS: Urine Bacteria 1+ (Absent); Urine Red Blood Cell 3+(>10/hpf) (Absent); Urine Squamous Epithelial Cell Present (Absent); Urine White Blood Cell 2+(11-20/hpf) (Absent)
[2020-08-27 04:32] LABS: Glucose Confirmatory 489 mg/dL (70-100)
[2020-08-27] MEDS ORDERED: NORMOSOL-R pH 7.4 1000 mL BAG 1,000 ML IV SCH ×2 (05:00→12:00)
[2020-08-27 06:10] LABS: Hematocrit 34 % (35-47); Hemoglobin 11.1 g/dL (12.0-16.0); Mean Corpuscular HGB Conc 33 g/dL (31-36); Mean Corpuscular Hemoglobin 26 pg (27-31); Mean Corpuscular Volume 80 fL (80-97); Mean Platelet Volume 9.9 fL (7.4-10.4); Platelet Count 183 10^3/uL (150-450); Red Blood Count 4.24 10^6 /uL (3.70-4.87); Red Cell Distribution Width 17 % (10-15); White Blood Count 16.8 10^3/uL (3.5-10.8)
[2020-08-27 06:24] LABS: BUN/Creatinine Ratio 26.4 (8-20); Calcium 9.3 mg/dL (8.6-10.3); EGFR African American 18.1 (>60)
[2020-08-27 06:26] LABS: Potassium 4.7 mmol/L (3.5-5.0)
[2020-08-27] MEDS ORDERED: Dextrose 50% Syringe 50 ml 25 GM/50 ML SYRINGE IV PUSH ONE (07:33)
[2020-08-27] MEDS ORDERED: Insulin GLARGINE 100 un/ml 10 ml VIAL SUBCUT ONE (07:34)
[2020-08-27] MEDS ORDERED: Dextrose 50% Syringe 50 ml 25 GM/50 ML SYRINGE ONE (07:35)
[2020-08-27] MEDS ORDERED: D5NS 0.9% 1000 ml BAG 1,000 ML IV SCH (08:00)
[2020-08-27] MEDS ORDERED: Buffered Lidocaine 1% SYRIN 1 ml INTRADERM ONE ×2 (08:06→09:20)
[2020-08-27] MEDS: Heparin 5000 UNITS/ML 1 mL VIAL SUBCUT SCH ×2 (08:13→20:24)
[2020-08-27] MEDS: cefTRIAXone 2 GM ADDV.VIAL 2 GM in NS 0.9% 100 ml BAG 100 ML IV SCH (08:49)
[2020-08-27 11:00] LABS: BUN/Creatinine Ratio 26.4 (8-20); Calcium 9.5 mg/dL (8.6-10.3); EGFR African American 19.3 (>60); EGFR Non-African American 15.9 (>60); Potassium 4.8 mmol/L (3.5-5.0)
[2020-08-27] MEDS ORDERED: NORMOSOL-R pH 7.4 1000 mL BAG 500 ML IV ONE (14:00)
[2020-08-27 14:16] LABS: ABS Lymphocytes 1.8 10^3/ul (1.0-4.8); ABS Monocytes 1.7 10^3/ul (0-0.8); ABS Neutrophils 13.2 10^3/ul (1.5-7.7); ABS Nucleated RBC 0.1 10^3/ul; Lymphocyte % 10.9 %; Nucleated Red Blood Cells % 0.3
[2020-08-27 15:16] LABS: Anion Gap 9 mmol/L (2-11); BUN/Creatinine Ratio 27.4 (8-20); Blood Urea Nitrogen 71 mg/dL (6-24); CO2 Carbon Dioxide 26 mmol/L (22-32); Calcium 9.1 mg/dL (8.6-10.3); Chloride 99 mmol/L (101-111); EGFR African American 21.1 (>60); EGFR Non-African American 17.4 (>60); Glucose 192 mg/dL (70-100); Potassium 4.5 mmol/L (3.5-5.0); Sodium 134 mmol/L (135-145)
[2020-08-27 15:19] LABS: Troponin I 0.34 ng/mL (<0.03)
[2020-08-27 15:26] LABS: Glucose 1038 mg/dL (70-100); Sodium 118 mmol/L (135-145)
[2020-08-27] MEDS ORDERED: Dextrose 50% Syringe 50 ml 25 GM/50 ML SYRINGE IV PUSH PRN (16:09)
[2020-08-27 20:30] LABS: Anion Gap 8 mmol/L (2-11); BUN/Creatinine Ratio 26.5 (8-20); Blood Urea Nitrogen 65 mg/dL (6-24); CO2 Carbon Dioxide 25 mmol/L (22-32); Calcium 8.5 mg/dL (8.6-10.3); Chloride 100 mmol/L (101-111); EGFR African American 22.5 (>60); EGFR Non-African American 18.6 (>60); Glucose 230 mg/dL (70-100); Potassium 4.3 mmol/L (3.5-5.0); Sodium 133 mmol/L (135-145)
[2020-08-27] MEDS ORDERED: Senna TAB 8.6 mg TAB PO PRN (21:00)
[2020-08-27] MEDS ORDERED: Insulin GLARGINE 100 un/ml 10 ml VIAL SUBCUT SCH (21:00)
[2020-08-28] MEDS ORDERED: Insulin Infusion 100unit/100mL 100 UNIT/100 ML BAG IV SCH ×2 (00:30)
[2020-08-28 07:12] LABS: ABS Basophils 0.1 10^3/ul (0-0.2); ABS Eosinophils 0.2 10^3/ul (0-0.6); ABS Monocytes 1.4 10^3/ul (0-0.8); ABS Neutrophils 10.1 10^3/ul (1.5-7.7); ABS Nucleated RBC 0.1 10^3/ul; Eosinophil % 1.6 %; Hematocrit 33 % (35-47); Hemoglobin 10.8 g/dL (12.0-16.0); Lymphocyte % 25.3 %; Mean Corpuscular HGB Conc 33 g/dL (31-36); Mean Corpuscular Hemoglobin 26 pg (27-31); Mean Corpuscular Volume 80 fL (80-97); Mean Platelet Volume 10.4 fL (7.4-10.4); Nucleated Red Blood Cells % 0.6; Platelet Count 133 10^3/uL (150-450); Red Blood Count 4.12 10^6 /uL (3.70-4.87); Red Cell Distribution Width 16 % (10-15); White Blood Count 15.8 10^3/uL (3.5-10.8)
[2020-08-28] MEDS: cefTRIAXone 2 GM ADDV.VIAL 2 GM in NS 0.9% 100 ml BAG 100 ML IV SCH (09:13)
[2020-08-28] MEDS: Heparin 5000 UNITS/ML 1 mL VIAL SUBCUT SCH (09:13)
[2020-08-28 09:31] LABS: BUN/Creatinine Ratio 23.9 (8-20); Calcium 9.2 mg/dL (8.6-10.3); EGFR African American 21.9 (>60); EGFR Non-African American 18.1 (>60); Potassium 4.2 mmol/L (3.5-5.0)
[2020-08-28] MEDS ORDERED: Insulin GLARGINE 100 un/ml 10 ml VIAL SUBCUT SCH (21:00)
[2020-08-29 06:52] LABS: ABS Eosinophils 0.1 10^3/ul (0-0.6); ABS Lymphocytes 2.6 10^3/ul (1.0-4.8); ABS Monocytes 0.9 10^3/ul (0-0.8); ABS Neutrophils 7.5 10^3/ul (1.5-7.7); Eosinophil % 1.2 %; Hematocrit 30 % (35-47); Hemoglobin 9.6 g/dL (12.0-16.0); Lymphocyte % 23.5 %; Mean Corpuscular HGB Conc 32 g/dL (31-36); Mean Corpuscular Hemoglobin 26 pg (27-31); Mean Corpuscular Volume 81 fL (80-97); Mean Platelet Volume 10.2 fL (7.4-10.4); Nucleated Red Blood Cells % 0.2; Platelet Count 132 10^3/uL (150-450); Red Blood Count 3.67 10^6 /uL (3.70-4.87); Red Cell Distribution Width 17 % (10-15); White Blood Count 11.2 10^3/uL (3.5-10.8)
[2020-08-29 06:57] LABS: INR 1.03 (0.82-1.09)
[2020-08-29 07:13] LABS: BUN/Creatinine Ratio 21.9 (8-20); Calcium 8.6 mg/dL (8.6-10.3); EGFR African American 22.8 (>60); EGFR Non-African American 18.9 (>60); Potassium 3.7 mmol/L (3.5-5.0)
[2020-08-29] MEDS: cefTRIAXone 2 GM ADDV.VIAL 2 GM in NS 0.9% 100 ml BAG 100 ML IV SCH (08:45)
[2020-08-29 16:17] VITALS: BP 128/57
== END 2020-08-29 16:20 | disposition home health service (06) | DRG 637 ==
LOC: ED 20:03 → ICU 23:49 → MEDTELE 08-27 20:47
PROVIDERS: ADMIT Student in an Organized Health Care Education/Training Program; ATTEND Internal Medicine

== ENCOUNTER 2021-05-22 17:31 | Observation (INO) ==
[2021-05-22 19:14] LABS: ABS Lymphocytes 0.8 10^3/ul (1.0-4.8); ABS Monocytes 0.3 10^3/ul (0-0.8); ABS Neutrophils 7.5 10^3/ul (1.5-7.7); Hematocrit 31 % (35-47); Hemoglobin 10.7 g/dL (12.0-16.0); Lymphocyte % 8.7 %; Mean Corpuscular HGB Conc 34 g/dL (31-36); Mean Corpuscular Hemoglobin 28 pg (27-31); Mean Corpuscular Volume 82 fL (80-97); Mean Platelet Volume 9.7 fL (7.4-10.4); Platelet Count 208 10^3/uL (150-450); Red Blood Count 3.81 10^6 /uL (3.70-4.87); Red Cell Distribution Width 17 % (10-15); White Blood Count 8.6 10^3/uL (3.5-10.8)
[2021-05-22 19:31] LABS: ALT 96 U/L (7-52); AST 85 U/L (13-39); Albumin 3.5 g/dL (3.2-5.2); Albumin/Globulin Ratio 0.7 (1-3); Alkaline Phosphatase 669 U/L (35-149); Anion Gap 13 mmol/L (2-11); Blood Urea Nitrogen 93 mg/dL (6-24); CO2 Carbon Dioxide 20 mmol/L (22-32); Calcium 9.3 mg/dL (8.6-10.3); Chloride 96 mmol/L (101-111); Globulin 5.1 g/dL (2-4); Potassium 4.8 mmol/L (3.5-5.0); Sodium 129 mmol/L (135-145); Total Protein 8.6 g/dL (6.4-8.9)
[2021-05-22 19:34] LABS: Glucose 510 mg/dL (70-100)
[2021-05-22] MEDS ORDERED: Dextrose 50% Syringe 50 ml 25 GM/50 ML SYRINGE IV PUSH PRN ×2 (19:44→22:51)
[2021-05-22] MEDS ORDERED: NS 0.9% 1000 ml BAG 1,000 ML IV SCH ×3 (20:00→21:40)
[2021-05-22] MEDS ORDERED: Magnesium Hydroxide LIQ 30 ML UDC PO PRN (21:39)
[2021-05-22 22:29] LABS: PCO2 Arterial 32 mmHg (35-45); PO2 Arterial 105 mmHg (80-100)
[2021-05-22 22:40] LABS: Rapid COVID-19 Molecular Undetected (Undetected)
[2021-05-22 22:42] LABS: Urine Appearance Cloudy; Urine Bilirubin Negative (Negative); Urine Blood 2+ (Negative); Urine Color Yellow; Urine Glucose 3+(>=500 mg/dL) (Negative); Urine Ketones Negative (Negative); Urine Nitrite Negative (Negative); Urine Protein 2+(100 mg/dL) (Negative); Urine Specific Gravity 1.009 (1.002-1.030); Urine Urobilinogen Negative (Negative)
[2021-05-22] MEDS ORDERED: Insulin GLARGINE 100 un/ml 10 ml VIAL SUBCUT ONE (22:51)
[2021-05-22 22:55] LABS: Total Iron Binding Capacity 269 mcg/dL (250-450); Transferrin 192 mg/dL (203-362)
[2021-05-22 22:58] LABS: Urine Creatinine Concentration 39.45 mg/dL
[2021-05-22] MEDS ORDERED: cefTRIAXone 1 GM/50 ML PREMIX.BAG IV ONE (23:00)
[2021-05-22 23:02] LABS: Urine Bacteria 1+ (Absent); Urine Red Blood Cell 3+(>10/hpf) (Absent); Urine Squamous Epithelial Cell Present (Absent); Urine Transitional Epithelial Present (Absent); Urine White Blood Cell 3+(>20/hpf) (Absent)
[2021-05-23 00:14] LABS: Folate > 20.00 ng/mL (5.90-24.80)
[2021-05-23 00:15] LABS: Vitamin B12 > 1450 pg/mL (180-914)
[2021-05-23 00:21] LABS: Hepatitis B Surface Antigen Nonreactive (Nonreactive)
[2021-05-23 00:26] LABS: Hepatitis A Ab IgM Negative (Negative)
[2021-05-23 00:27] LABS: Hepatitis B Core IgM Nonreactive (Nonreactive)
[2021-05-23 00:38] LABS: Hepatitis C Antibody Negative (Negative)
[2021-05-23 01:25] LABS: Calcium 8.8 mg/dL (8.6-10.3); Potassium 3.7 mmol/L (3.5-5.0)
[2021-05-23 06:39] LABS: ABS Eosinophils 0.1 10^3/ul (0-0.6); ABS Lymphocytes 2.1 10^3/ul (1.0-4.8); ABS Neutrophils 7.4 10^3/ul (1.5-7.7); Eosinophil % 0.7 %; Hematocrit 29 % (35-47); Hemoglobin 9.8 g/dL (12.0-16.0); Mean Corpuscular HGB Conc 34 g/dL (31-36); Mean Corpuscular Hemoglobin 28 pg (27-31); Mean Corpuscular Volume 82 fL (80-97); Mean Platelet Volume 9.4 fL (7.4-10.4); Platelet Count 195 10^3/uL (150-450); Red Blood Count 3.56 10^6 /uL (3.70-4.87); Red Cell Distribution Width 17 % (10-15); White Blood Count 10.7 10^3/uL (3.5-10.8)
[2021-05-23 06:50] LABS: Albumin 3.1 g/dL (3.2-5.2); Albumin/Globulin Ratio 0.7 (1-3); Globulin 4.5 g/dL (2-4); Potassium 3.6 mmol/L (3.5-5.0); Total Bilirubin 1.1 mg/dL (0.2-1.0); Total Protein 7.6 g/dL (6.4-8.9)
[2021-05-23 07:07] LABS: Iron 73 ug/dL (50-212); LDH 287 U/L (140-271)
[2021-05-23] MEDS ORDERED: NS 0.9% 1000 ml BAG 1,000 ML IV SCH ×2 (07:30→07:47)
[2021-05-23] MEDS ORDERED: Lactated Ringers 500 ml BAG 500 ML IV ONE (14:51)
[2021-05-23 15:32] VITALS: BP 125/50
[2021-05-23 16:25] LABS: Calcium 8.5 mg/dL (8.6-10.3); Potassium 4.3 mmol/L (3.5-5.0)
[2021-05-23] MEDS ORDERED: cefTRIAXone 1 gm/50 mL NS BAG 1 GM/50 ML BAG IVPB SCH (23:00)
[2021-05-27 10:26] LABS: Albumin 2.2 g/dL (3.4-4.7); Albumin/Globulin Ratio 0.58; Gamma Globulin 1.4 g/dL (0.6-1.6); Total Protein(PEP) 6.1 g/dL (6.3 - 7.9)
== END 2021-05-23 17:10 | disposition home or self-care (01) ==
LOC: ED 17:31 → INTOOBSV 21:29 → SUATTDRO 21:29 → EDHOLD 21:57 → MED 23:54
PROVIDERS: ADMIT Internal Medicine; ATTEND Internal Medicine

== ENCOUNTER 2021-07-24 17:39 | Inpatient (IN) ==
[2021-07-24] MEDS ORDERED: Lactated Ringers 1000 ml BAG 1,000 ML IV SCH (21:00)
[2021-07-24 21:21] LABS: Hematocrit 28 % (35-47); Hemoglobin 9.3 g/dL (12.0-16.0); Mean Corpuscular HGB Conc 34 g/dL (31-36); Mean Corpuscular Hemoglobin 27 pg (27-31); Mean Corpuscular Volume 80 fL (80-97); Platelet Count 206 10^3/uL (150-450); Red Blood Count 3.43 10^6 /uL (3.70-4.87); Red Cell Distribution Width 15 % (10-15); White Blood Count 8.4 10^3/uL (3.5-10.8)
[2021-07-24 21:33] LABS: ALT 9 U/L (7-52); AST 17 U/L (13-39); Albumin 3.3 g/dL (3.2-5.2); Albumin/Globulin Ratio 0.9 (1-3); Alkaline Phosphatase 133 U/L (35-149); Anion Gap 13 mmol/L (2-11); Blood Urea Nitrogen 83 mg/dL (6-24); C Reactive Protein 96.13 mg/L (<8.01); CO2 Carbon Dioxide 26 mmol/L (22-32); Calcium 8.2 mg/dL (8.6-10.3); Chloride 94 mmol/L (101-111); Globulin 3.7 g/dL (2-4); Glucose 206 mg/dL (70-100); Sodium 133 mmol/L (135-145); eGFR CKD-EPI 8.6 (>60)
[2021-07-24 21:37] LABS: Troponin I 0.11 ng/mL (<0.03)
[2021-07-24] MEDS ORDERED: Lactated Ringers 1000 ml BAG 1,000 ML IV ONE ×2 (21:53→22:48)
[2021-07-24] MEDS ORDERED: Linezolid 600 MG IVPREMIX(*) 600 MG/300 ML BAG IVPB ONE (22:02)
[2021-07-24] MEDS ORDERED: Dextrose 50% Syringe 50 ml 25 GM/50 ML SYRINGE IV PUSH PRN (22:48)
[2021-07-25 00:47] LABS: Urine Creatinine Concentration 52.46 mg/dL
[2021-07-25 00:59] LABS: Troponin I 0.12 ng/mL (<0.03)
[2021-07-25 04:08] LABS: ABS Eosinophils 0.1 10^3/ul (0-0.6); ABS Lymphocytes 1.5 10^3/ul (1.0-4.8); ABS Monocytes 0.4 10^3/ul (0-0.8); ABS Neutrophils 4.9 10^3/ul (1.5-7.7); Eosinophil % 2.1 %; Hematocrit 26 % (35-47); Hemoglobin 8.7 g/dL (12.0-16.0); Mean Corpuscular HGB Conc 34 g/dL (31-36); Mean Corpuscular Hemoglobin 26 pg (27-31); Mean Corpuscular Volume 79 fL (80-97); Mean Platelet Volume 8.7 fL (7.4-10.4); Platelet Count 209 10^3/uL (150-450); Red Blood Count 3.31 10^6 /uL (3.70-4.87); Red Cell Distribution Width 15 % (10-15)
[2021-07-25 04:16] LABS: INR 1.31 (0.86-1.15)
[2021-07-25 04:39] LABS: Potassium 3.4 mmol/L (3.5-5.0); eGFR CKD-EPI 9.7 (>60)
[2021-07-25] MEDS: KCL 10 MEQ/50 ML IVPREMIX 10 MEQ/50 ML BAG IV SCH ×2 (08:21→19:13)
[2021-07-25] MEDS: Insulin GLARGINE 100 un/ml 10 ml VIAL SUBCUT SCH (08:22)
[2021-07-25] MEDS ORDERED: Potassium Chlor 20 meq TAB.ER PO ONE (09:30)
[2021-07-25 10:25] LABS: Hematocrit 27 % (35-47)
[2021-07-25] MEDS: Linezolid 600 MG IVPREMIX(*) 600 MG/300 ML BAG IVPB SCH ×2 (11:26→20:39)
[2021-07-26] MEDS ORDERED: Ondansetron 4 mg VIAL 2 MG/ML 2 ml VIAL IV PRN (03:06)
[2021-07-26 06:39] LABS: ABS Eosinophils 0.2 10^3/ul (0-0.6); ABS Lymphocytes 1.4 10^3/ul (1.0-4.8); ABS Monocytes 0.5 10^3/ul (0-0.8); ABS Neutrophils 4.6 10^3/ul (1.5-7.7); Eosinophil % 2.4 %; Hematocrit 26 % (35-47); Lymphocyte % 20.5 %; Mean Corpuscular HGB Conc 34 g/dL (31-36); Mean Corpuscular Hemoglobin 27 pg (27-31); Mean Corpuscular Volume 79 fL (80-97); Mean Platelet Volume 8.4 fL (7.4-10.4); Platelet Count 232 10^3/uL (150-450); Red Blood Count 3.32 10^6 /uL (3.70-4.87); Red Cell Distribution Width 15 % (10-15); White Blood Count 6.7 10^3/uL (3.5-10.8)
[2021-07-26 06:53] LABS: Calcium 8.3 mg/dL (8.6-10.3); Potassium 3.6 mmol/L (3.5-5.0); eGFR CKD-EPI 11.9 (>60)
[2021-07-26] MEDS: Insulin GLARGINE 100 un/ml 10 ml VIAL SUBCUT SCH (09:16)
[2021-07-26] MEDS: Linezolid 600 MG IVPREMIX(*) 600 MG/300 ML BAG IVPB SCH (09:34)
[2021-07-26] MEDS ORDERED: Lactated Ringers 1000 ml BAG 1,000 ML IV SCH (11:00)
[2021-07-26] MEDS ORDERED: Magnesium CITRATE LIQ 300 ML BTL PO ONE (15:03)
[2021-07-26] MEDS ORDERED: Magnesium Hydroxide LIQ 30 ML UDC PO ONE (17:03)
[2021-07-26] MEDS: Magnesium Hydroxide LIQ 30 ML UDC PO SCH (20:35)
[2021-07-26] MEDS: Senna TAB 8.6 mg TAB PO SCH (20:35)
[2021-07-27 07:46] LABS: Calcium 8.6 mg/dL (8.6-10.3); Potassium 3.9 mmol/L (3.5-5.0); eGFR CKD-EPI 13.6 (>60)
[2021-07-27] MEDS: Magnesium Hydroxide LIQ 30 ML UDC PO SCH (08:35)
[2021-07-27] MEDS: Senna TAB 8.6 mg TAB PO SCH ×2 (08:36→20:58)
[2021-07-27] MEDS ORDERED: Linezolid 600 MG IVPREMIX(*) 600 MG/300 ML BAG IVPB SCH (15:30)
[2021-07-28 06:46] LABS: ABS Eosinophils 0.2 10^3/ul (0-0.6); ABS Lymphocytes 2.2 10^3/ul (1.0-4.8); ABS Monocytes 0.9 10^3/ul (0-0.8); ABS Neutrophils 4.1 10^3/ul (1.5-7.7); Eosinophil % 3.3 %; Hematocrit 29 % (35-47); Hemoglobin 9.7 g/dL (12.0-16.0); Lymphocyte % 29.6 %; Mean Corpuscular HGB Conc 34 g/dL (31-36); Mean Corpuscular Hemoglobin 27 pg (27-31); Mean Corpuscular Volume 80 fL (80-97); Mean Platelet Volume 7.8 fL (7.4-10.4); Nucleated Red Blood Cells % 0.1; Platelet Count 252 10^3/uL (150-450); Red Blood Count 3.57 10^6 /uL (3.70-4.87); Red Cell Distribution Width 15 % (10-15); White Blood Count 7.5 10^3/uL (3.5-10.8)
[2021-07-28 07:01] LABS: Calcium 8.5 mg/dL (8.6-10.3); Potassium 3.9 mmol/L (3.5-5.0); eGFR CKD-EPI 13.6 (>60)
[2021-07-28] MEDS: Senna TAB 8.6 mg TAB PO SCH ×2 (09:47→20:34)
[2021-07-28 21:02] LABS: ABS Basophils 0.1 10^3/ul (0-0.2); ABS Lymphocytes 1.9 10^3/ul (1.0-4.8); ABS Monocytes 0.7 10^3/ul (0-0.8); ABS Neutrophils 7.5 10^3/ul (1.5-7.7); Eosinophil % 0.2 %; Hematocrit 29 % (35-47); Hemoglobin 9.6 g/dL (12.0-16.0); Lymphocyte % 18.4 %; Mean Corpuscular HGB Conc 33 g/dL (31-36); Mean Corpuscular Hemoglobin 27 pg (27-31); Mean Corpuscular Volume 81 fL (80-97); Mean Platelet Volume 8.6 fL (7.4-10.4); Nucleated Red Blood Cells % 0.1; Platelet Count 270 10^3/uL (150-450); Red Blood Count 3.58 10^6 /uL (3.70-4.87); Red Cell Distribution Width 15 % (10-15); White Blood Count 10.2 10^3/uL (3.5-10.8)
[2021-07-29 07:39] LABS: ABS Basophils 0.1 10^3/ul (0-0.2); ABS Eosinophils 0.1 10^3/ul (0-0.6); ABS Lymphocytes 1.9 10^3/ul (1.0-4.8); ABS Monocytes 0.9 10^3/ul (0-0.8); Eosinophil % 1.5 %; Hematocrit 28 % (35-47); Hemoglobin 9.4 g/dL (12.0-16.0); Lymphocyte % 23.9 %; Mean Corpuscular HGB Conc 33 g/dL (31-36); Mean Corpuscular Hemoglobin 27 pg (27-31); Mean Corpuscular Volume 81 fL (80-97); Platelet Count 251 10^3/uL (150-450); Red Blood Count 3.49 10^6 /uL (3.70-4.87); Red Cell Distribution Width 16 % (10-15); White Blood Count 7.9 10^3/uL (3.5-10.8)
[2021-07-29 08:09] LABS: Albumin 2.9 g/dL (3.2-5.2); Albumin/Globulin Ratio 0.8 (1-3); Calcium 8.4 mg/dL (8.6-10.3); Globulin 3.8 g/dL (2-4); Magnesium 1.7 mg/dL (1.9-2.7); Potassium 4.3 mmol/L (3.5-5.0); Total Bilirubin 0.5 mg/dL (0.2-1.0); Total Protein 6.7 g/dL (6.4-8.9)
[2021-07-29 08:50] LABS: Urine Appearance Clear; Urine Bilirubin Negative (Negative); Urine Blood 1+ (Negative); Urine Color Yellow; Urine Glucose Negative (Negative); Urine Ketones Negative (Negative); Urine Nitrite Negative (Negative); Urine Protein 1+(30 mg/dL) (Negative); Urine Specific Gravity 1.011 (1.002-1.030); Urine Urobilinogen Negative (Negative)
[2021-07-29 08:56] LABS: Urine Bacteria Absent (Absent); Urine Red Blood Cell 3+(>10/hpf) (Absent); Urine Squamous Epithelial Cell Present (Absent); Urine White Blood Cell Trace(0-5/hpf) (Absent)
[2021-07-29] MEDS ORDERED: Dextrose 50% Syringe 50 ml 25 GM/50 ML SYRINGE IV PUSH PRN (09:23)
[2021-07-29] MEDS: Senna TAB 8.6 mg TAB PO SCH (10:08)
[2021-07-29 14:05] LABS: Phosphorus 3.2 mg/dL (2.5-5.0)
[2021-07-30 07:15] LABS: Hematocrit 25 % (35-47); Hemoglobin 8.5 g/dL (12.0-16.0); Mean Corpuscular HGB Conc 34 g/dL (31-36); Mean Corpuscular Hemoglobin 27 pg (27-31); Mean Corpuscular Volume 81 fL (80-97); Mean Platelet Volume 8.1 fL (7.4-10.4); Platelet Count 247 10^3/uL (150-450); Red Blood Count 3.13 10^6 /uL (3.70-4.87); Red Cell Distribution Width 16 % (10-15); White Blood Count 8.3 10^3/uL (3.5-10.8)
[2021-07-30 07:28] LABS: Calcium 8.4 mg/dL (8.6-10.3); Magnesium 1.8 mg/dL (1.9-2.7); Phosphorus 2.6 mg/dL (2.5-5.0); eGFR CKD-EPI 14.9 (>60)
[2021-07-30] MEDS ORDERED: Magnesium Sulfate IV 1GM/100ML 1 GM/100 ML BAG IV ONE (07:43)
[2021-07-30 08:11] LABS: ABS Basophils 0.1 10^3/ul (0-0.2); ABS Eosinophils 0.1 10^3/ul (0-0.6); ABS Lymphocytes 2.1 10^3/ul (1.0-4.8); ABS Monocytes 0.8 10^3/ul (0-0.8); ABS Neutrophils 5.3 10^3/ul (1.5-7.7); Eosinophil % 1.6 %; Lymphocyte % 25.1 %
[2021-07-30 22:14] LABS: Calcium 8.4 mg/dL (8.6-10.3); Potassium 4.8 mmol/L (3.5-5.0); eGFR CKD-EPI 15.3 (>60)
[2021-07-30 23:26] LABS: Glucose Confirmatory 495 mg/dL (70-100)
[2021-07-31 08:34] LABS: Hematocrit 28 % (35-47); Hemoglobin 9.3 g/dL (12.0-16.0); Mean Corpuscular HGB Conc 33 g/dL (31-36); Mean Corpuscular Hemoglobin 27 pg (27-31); Mean Corpuscular Volume 81 fL (80-97); Mean Platelet Volume 7.8 fL (7.4-10.4); Platelet Count 314 10^3/uL (150-450); Red Blood Count 3.44 10^6 /uL (3.70-4.87); Red Cell Distribution Width 15 % (10-15)
[2021-07-31 08:49] LABS: Calcium 9.5 mg/dL (8.6-10.3); Magnesium 2.2 mg/dL (1.9-2.7); Potassium 4.7 mmol/L (3.5-5.0); eGFR CKD-EPI 16.6 (>60)
[2021-07-31 09:47] LABS: ABS Eosinophils 0.1 10^3/ul (0-0.6); ABS Lymphocytes 1.4 10^3/ul (1.0-4.8); ABS Neutrophils 9.4 10^3/ul (1.5-7.7); Eosinophil % 1.1 %; Lymphocyte % 11.8 %; Nucleated Red Blood Cells % 0.1
[2021-07-31] MEDS: Insulin GLARGINE 100 un/ml 10 ml VIAL SUBCUT SCH (21:12)
[2021-08-01 07:49] LABS: Hematocrit 24 % (35-47); Hemoglobin 8.1 g/dL (12.0-16.0); Mean Corpuscular HGB Conc 33 g/dL (31-36); Mean Corpuscular Hemoglobin 27 pg (27-31); Mean Corpuscular Volume 81 fL (80-97); Mean Platelet Volume 7.8 fL (7.4-10.4); Platelet Count 302 10^3/uL (150-450); Red Cell Distribution Width 16 % (10-15); White Blood Count 13.8 10^3/uL (3.5-10.8)
[2021-08-01 07:59] LABS: Magnesium 1.9 mg/dL (1.9-2.7); Potassium 4.2 mmol/L (3.5-5.0); eGFR CKD-EPI 17.8 (>60)
[2021-08-01 08:33] LABS: ABS Basophils 0.1 10^3/ul (0-0.2); ABS Eosinophils 0.2 10^3/ul (0-0.6); ABS Lymphocytes 2.9 10^3/ul (1.0-4.8); ABS Monocytes 1.1 10^3/ul (0-0.8); ABS Neutrophils 9.5 10^3/ul (1.5-7.7); Eosinophil % 1.7 %; Lymphocyte % 20.8 %; Nucleated Red Blood Cells % 0.2
[2021-08-01] MEDS ORDERED: Dextrose 50% Syringe 50 ml 25 GM/50 ML SYRINGE IV PUSH PRN (09:08)
[2021-08-01] MEDS ORDERED: Senna TAB 8.6 mg TAB PO PRN (13:00)
[2021-08-01] MEDS: Insulin GLARGINE 100 un/ml 10 ml VIAL SUBCUT SCH (20:50)
[2021-08-02 00:39] LABS: Urine Appearance Cloudy; Urine Bilirubin Negative (Negative); Urine Blood Negative (Negative); Urine Color Yellow; Urine Glucose Negative (Negative); Urine Ketones Negative (Negative); Urine Nitrite Negative (Negative); Urine Protein Negative (Negative); Urine Specific Gravity 1.011 (1.002-1.030); Urine Urobilinogen Negative (Negative)
[2021-08-02 06:16] LABS: Hematocrit 24 % (35-47); Hemoglobin 7.8 g/dL (12.0-16.0); Mean Corpuscular HGB Conc 33 g/dL (31-36); Mean Corpuscular Hemoglobin 27 pg (27-31); Mean Corpuscular Volume 81 fL (80-97); Mean Platelet Volume 7.8 fL (7.4-10.4); Platelet Count 300 10^3/uL (150-450); Red Blood Count 2.93 10^6 /uL (3.70-4.87); Red Cell Distribution Width 15 % (10-15); White Blood Count 15.5 10^3/uL (3.5-10.8)
[2021-08-02 06:17] LABS: ABS Basophils 0.1 10^3/ul (0-0.2); ABS Eosinophils 0.2 10^3/ul (0-0.6); ABS Monocytes 1.1 10^3/ul (0-0.8); ABS Neutrophils 11.1 10^3/ul (1.5-7.7); Eosinophil % 1.3 %; Lymphocyte % 19.4 %; Nucleated Red Blood Cells % 0.1
[2021-08-02 06:41] LABS: Calcium 8.7 mg/dL (8.6-10.3); Magnesium 1.8 mg/dL (1.9-2.7); Potassium 4.4 mmol/L (3.5-5.0); eGFR CKD-EPI 18.2 (>60)
[2021-08-02] MEDS ORDERED: Magnesium Sulfate 2 gm BAG 2 GM/50 ML BAG IVPB ONE (07:06)
[2021-08-02 12:21] LABS: C Reactive Protein 43.83 mg/L (<8.01)
[2021-08-02] MEDS: Insulin GLARGINE 100 un/ml 10 ml VIAL SUBCUT SCH (21:04)
[2021-08-03 08:27] LABS: Hematocrit 25 % (35-47); Hemoglobin 8.3 g/dL (12.0-16.0); Mean Corpuscular HGB Conc 34 g/dL (31-36); Mean Corpuscular Hemoglobin 27 pg (27-31); Mean Corpuscular Volume 82 fL (80-97); Mean Platelet Volume 7.3 fL (7.4-10.4); Platelet Count 347 10^3/uL (150-450); Red Blood Count 3.04 10^6 /uL (3.70-4.87); Red Cell Distribution Width 16 % (10-15); White Blood Count 13.3 10^3/uL (3.5-10.8)
[2021-08-03 08:44] LABS: Calcium 9.1 mg/dL (8.6-10.3); Magnesium 2.3 mg/dL (1.9-2.7); Phosphorus 3.2 mg/dL (2.5-5.0); Potassium 4.8 mmol/L (3.5-5.0); eGFR CKD-EPI 19.8 (>60)
[2021-08-03 09:42] LABS: ABS Basophils 0.1 10^3/ul (0-0.2); ABS Eosinophils 0.2 10^3/ul (0-0.6); ABS Lymphocytes 2.8 10^3/ul (1.0-4.8); ABS Monocytes 1.1 10^3/ul (0-0.8); ABS Neutrophils 9.1 10^3/ul (1.5-7.7); Eosinophil % 1.8 %
[2021-08-03] MEDS: Insulin GLARGINE 100 un/ml 10 ml VIAL SUBCUT SCH (21:11)
[2021-08-04 06:22] LABS: Hematocrit 24 % (35-47); Mean Corpuscular HGB Conc 33 g/dL (31-36); Mean Corpuscular Hemoglobin 27 pg (27-31); Mean Corpuscular Volume 81 fL (80-97); Mean Platelet Volume 7.3 fL (7.4-10.4); Platelet Count 353 10^3/uL (150-450); Red Blood Count 2.98 10^6 /uL (3.70-4.87); Red Cell Distribution Width 16 % (10-15); White Blood Count 12.3 10^3/uL (3.5-10.8)
[2021-08-04 06:39] LABS: Calcium 8.8 mg/dL (8.6-10.3); Magnesium 2.2 mg/dL (1.9-2.7); Potassium 5.2 mmol/L (3.5-5.0); eGFR CKD-EPI 17.8 (>60)
[2021-08-04 06:48] LABS: ABS Basophils 0.1 10^3/ul (0-0.2); ABS Eosinophils 0.1 10^3/ul (0-0.6); ABS Monocytes 1.2 10^3/ul (0-0.8); ABS Neutrophils 7.9 10^3/ul (1.5-7.7); Eosinophil % 1.1 %; Lymphocyte % 24.3 %; Nucleated Red Blood Cells % 0.1
[2021-08-04] MEDS ORDERED: NS 0.9% 250 ml 250 ML IV ONE (09:41)
[2021-08-04 14:20] LABS: Calcium 8.5 mg/dL (8.6-10.3); Potassium 4.8 mmol/L (3.5-5.0)
[2021-08-04] MEDS ORDERED: Insulin GLARGINE 100 un/ml 10 ml VIAL SUBCUT SCH (21:00)
[2021-08-05 16:13] VITALS: BP 107/41
== END 2021-08-05 16:50 | disposition home health service (06) | DRG 682 ==
LOC: ED 17:39 → EDHOLD 17:39 → SUATTDRO 22:38 → MED 07-25 00:18 → SUATTDRO 07-25 13:55 → MED 08-01 15:10
PROVIDERS: ADMIT Internal Medicine; ATTEND Internal Medicine

== ENCOUNTER 2021-12-31 16:14 | Inpatient (IN) ==
[2021-12-31 21:43] LABS: ABS Basophils 0.1 10^3/ul (0-0.2); ABS Eosinophils 0.2 10^3/ul (0-0.6); ABS Lymphocytes 2.5 10^3/ul (1.0-4.8); ABS Monocytes 0.9 10^3/ul (0-0.8); ABS Neutrophils 8.5 10^3/ul (1.5-7.7); Eosinophil % 1.6 %; Hematocrit 24 % (35-47); Hemoglobin 7.7 g/dL (12.0-16.0); Lymphocyte % 20.6 %; Mean Corpuscular HGB Conc 32 g/dL (31-36); Mean Corpuscular Hemoglobin 27 pg (27-31); Mean Corpuscular Volume 83 fL (80-97); Mean Platelet Volume 8.9 fL (7.4-10.4); Nucleated Red Blood Cells % 0.1; Platelet Count 223 10^3/uL (150-450); Red Blood Count 2.89 10^6 /uL (3.70-4.87); Red Cell Distribution Width 21 % (10-15); White Blood Count 12.3 10^3/uL (3.5-10.8)
[2021-12-31 22:02] LABS: INR 1.3 (0.86-1.15)
[2021-12-31 22:03] LABS: Activated Partial Thrombo Time 36.9 seconds (26.0-38.0)
[2021-12-31 22:04] LABS: Albumin 2.7 g/dL (3.2-5.2); Albumin/Globulin Ratio 0.6 (1-3); C Reactive Protein 133.98 mg/L (<8.01); Calcium 8.3 mg/dL (8.6-10.3); Globulin 4.7 g/dL (2-4); Potassium 3.7 mmol/L (3.5-5.0); Total Bilirubin 1.9 mg/dL (0.2-1.0); Total Protein 7.4 g/dL (6.4-8.9); eGFR CKD-EPI 26.6 (>60)
[2021-12-31] MEDS ORDERED: Ondansetron ODT 4 mg TAB 4 MG TAB PO ONE (22:38)
[2021-12-31] MEDS ORDERED: Ondansetron 4 mg VIAL 2 MG/ML 2 ml VIAL IV ONE (23:52)
[2022-01-01] MEDS ORDERED: Ondansetron ODT 4 mg TAB 4 MG TAB PO PRN (00:01)
[2022-01-01 07:02] LABS: ABS Basophils 0.1 10^3/ul (0-0.2); ABS Eosinophils 0.1 10^3/ul (0-0.6); ABS Lymphocytes 1.9 10^3/ul (1.0-4.8); ABS Monocytes 0.8 10^3/ul (0-0.8); Eosinophil % 0.8 %; Hematocrit 23 % (35-47); Hemoglobin 7.4 g/dL (12.0-16.0); Lymphocyte % 17.7 %; Mean Corpuscular HGB Conc 32 g/dL (31-36); Mean Corpuscular Hemoglobin 27 pg (27-31); Mean Corpuscular Volume 85 fL (80-97); Mean Platelet Volume 9.3 fL (7.4-10.4); Platelet Count 223 10^3/uL (150-450); Red Cell Distribution Width 21 % (10-15); White Blood Count 10.8 10^3/uL (3.5-10.8)
[2022-01-01 07:13] LABS: CO2 Carbon Dioxide 22 mmol/L (22-32); Calcium 8.2 mg/dL (8.6-10.3); Chloride 105 mmol/L (101-111); Sodium 139 mmol/L (135-145)
[2022-01-01 07:19] LABS: Blood Urea Nitrogen 24 mg/dL (6-24); Glucose 149 mg/dL (70-100); eGFR CKD-EPI 23.7 (>60)
[2022-01-01 07:21] LABS: Anion Gap 12 mmol/L (2-11)
[2022-01-01] MEDS: Insulin GLARGINE 100 un/ml 10 ml VIAL SUBCUT SCH (09:35)
[2022-01-01] MEDS: Triamcinolone 0.025% OINT 15 GM TUBE TOPICAL SCH ×2 (09:38→22:22)
[2022-01-01 14:10] LABS: Potassium Redraw 3.8 mmol/L (3.5-5.0)
[2022-01-01] MEDS ORDERED: Potassium Chlor 10 meq TAB PO ONE (16:14)
[2022-01-01 16:59] LABS: Magnesium 1.4 mg/dL (1.9-2.7)
[2022-01-01 17:06] LABS: Hematocrit 22 % (35-47)
[2022-01-01] MEDS ORDERED: Magnesium Sulfate 2 gm BAG 2 GM/50 ML BAG IVPB ONE (17:17)
[2022-01-01] MEDS: Lactated Ringers 1000 ml BAG 1,000 ML IV SCH (17:35)
[2022-01-02 00:57] LABS: Hematocrit 21 % (35-47); Hemoglobin 6.7 g/dL (12.0-16.0)
[2022-01-02 07:58] LABS: ABS Basophils 0.1 10^3/ul (0-0.2); ABS Eosinophils 0.1 10^3/ul (0-0.6); ABS Lymphocytes 2.1 10^3/ul (1.0-4.8); ABS Monocytes 0.8 10^3/ul (0-0.8); ABS Neutrophils 5.6 10^3/ul (1.5-7.7); Eosinophil % 1.5 %; Hematocrit 21 % (35-47); Hemoglobin 6.8 g/dL (12.0-16.0); Lymphocyte % 24.6 %; Mean Corpuscular HGB Conc 33 g/dL (31-36); Mean Corpuscular Hemoglobin 28 pg (27-31); Mean Corpuscular Volume 83 fL (80-97); Mean Platelet Volume 8.6 fL (7.4-10.4); Nucleated Red Blood Cells % 0.1; Platelet Count 191 10^3/uL (150-450); Red Blood Count 2.46 10^6 /uL (3.70-4.87); Red Cell Distribution Width 20 % (10-15); White Blood Count 8.7 10^3/uL (3.5-10.8)
[2022-01-02 09:02] LABS: Calcium 7.8 mg/dL (8.6-10.3); eGFR CKD-EPI 22.5 (>60)
[2022-01-02] MEDS: Acetaminophen IV 1 GM/100ML 100 ML IV PRN (09:36)
[2022-01-02] MEDS: Insulin GLARGINE 100 un/ml 10 ml VIAL SUBCUT SCH (09:52)
[2022-01-02] MEDS: Triamcinolone 0.025% OINT 15 GM TUBE TOPICAL SCH ×3 (15:52→20:49)
[2022-01-02] MEDS: Lactated Ringers 1000 ml BAG 1,000 ML IV SCH (18:11)
[2022-01-03] MEDS: Acetaminophen IV 1 GM/100ML 100 ML IV PRN ×2 (04:16→13:07)
[2022-01-03] MEDS: Lactated Ringers 1000 ml BAG 1,000 ML IV SCH (04:16)
[2022-01-03 05:43] LABS: ABS Basophils 0.1 10^3/ul (0-0.2); ABS Eosinophils 0.1 10^3/ul (0-0.6); ABS Lymphocytes 1.8 10^3/ul (1.0-4.8); ABS Monocytes 0.6 10^3/ul (0-0.8); ABS Neutrophils 5.6 10^3/ul (1.5-7.7); Eosinophil % 1.5 %; Hematocrit 25 % (35-47); Hemoglobin 8.5 g/dL (12.0-16.0); Lymphocyte % 21.4 %; Mean Corpuscular HGB Conc 34 g/dL (31-36); Mean Corpuscular Hemoglobin 28 pg (27-31); Mean Corpuscular Volume 83 fL (80-97); Mean Platelet Volume 8.4 fL (7.4-10.4); Nucleated Red Blood Cells % 0.1; Platelet Count 196 10^3/uL (150-450); Red Blood Count 3.02 10^6 /uL (3.70-4.87); Red Cell Distribution Width 18 % (10-15); White Blood Count 8.2 10^3/uL (3.5-10.8)
[2022-01-03 05:50] LABS: Calcium 7.9 mg/dL (8.6-10.3); Potassium 3.9 mmol/L (3.5-5.0)
[2022-01-03 05:56] LABS: eGFR CKD-EPI 22.5 (>60)
[2022-01-03] MEDS ORDERED: Famotidine IV 10 MG/ML 2 ml VIAL (20 mg) IV ONE (07:16)
[2022-01-03] MEDS ORDERED: Lactated Ringers 1000 ml BAG 1,000 ML IV SCH (08:00)
[2022-01-03] MEDS ORDERED: Lidocaine 2% PF 5 ML VIAL ONE (08:25)
[2022-01-03] MEDS ORDERED: Propofol 10 MG/ML 20 ML BTL ONE (08:25)
[2022-01-03] MEDS ORDERED: Ondansetron 4 mg VIAL 2 MG/ML 2 ml VIAL ONE (08:25)
[2022-01-03] MEDS ORDERED: Midazolam 2 mg/2 ml VIAL 1 mg/ml 2 ml VIAL (2 mg) ONE (08:26)
[2022-01-03] MEDS ORDERED: fentaNYL 100 mcg/2 ml 50 MCG/ML VIAL ONE ×2 (08:26→11:10)
[2022-01-03] MEDS ORDERED: Bupivacaine 0.25% SDV 30 ML ONE (08:51)
[2022-01-03] MEDS ORDERED: Lidocaine 1% w EPI 1:200,000 SDV 30 ML VIAL ONE (08:51)
[2022-01-03] MEDS ORDERED: Famotidine IV 10 MG/ML 2 ml VIAL (20 mg) ONE (09:06)
[2022-01-03] MEDS ORDERED: Ondansetron 4 mg VIAL 2 MG/ML 2 ml VIAL IV PRN (10:00)
[2022-01-03] MEDS ORDERED: fentaNYL 100 mcg/2 ml 50 MCG/ML VIAL IV PRN (10:00)
[2022-01-03] MEDS ORDERED: Naloxone 0.4 mg VIAL 0.4 mg/ml 1 ml VIAL IV PRN (10:00)
[2022-01-03] MEDS: Insulin GLARGINE 100 un/ml 10 ml VIAL SUBCUT SCH (10:15)
[2022-01-03] MEDS: Triamcinolone 0.025% OINT 15 GM TUBE TOPICAL SCH ×2 (10:16→21:00)
[2022-01-03] MEDS ORDERED: Senna TAB 8.6 mg TAB PO PRN (22:36)
[2022-01-03] MEDS ORDERED: Magnesium Hydroxide LIQ 30 ML UDC PO PRN (22:36)
[2022-01-03] MEDS: Heparin 5000 UNITS/ML 1 mL VIAL SUBCUT SCH (23:01)
[2022-01-04] MEDS: Heparin 5000 UNITS/ML 1 mL VIAL SUBCUT SCH ×3 (06:03→22:47)
[2022-01-04 07:17] LABS: ABS Basophils 0.1 10^3/ul (0-0.2); ABS Eosinophils 0.2 10^3/ul (0-0.6); ABS Lymphocytes 1.9 10^3/ul (1.0-4.8); ABS Monocytes 0.6 10^3/ul (0-0.8); Eosinophil % 2.8 %; Hematocrit 26 % (35-47); Hemoglobin 8.9 g/dL (12.0-16.0); Lymphocyte % 24.9 %; Mean Corpuscular HGB Conc 34 g/dL (31-36); Mean Corpuscular Hemoglobin 28 pg (27-31); Mean Corpuscular Volume 83 fL (80-97); Mean Platelet Volume 9.1 fL (7.4-10.4); Nucleated Red Blood Cells % 0.4; Platelet Count 225 10^3/uL (150-450); Red Blood Count 3.18 10^6 /uL (3.70-4.87); Red Cell Distribution Width 18 % (10-15); White Blood Count 7.8 10^3/uL (3.5-10.8)
[2022-01-04 07:28] LABS: Calcium 7.9 mg/dL (8.6-10.3); Magnesium 2.2 mg/dL (1.9-2.7); Potassium 4.2 mmol/L (3.5-5.0); eGFR CKD-EPI 22.9 (>60)
[2022-01-04] MEDS ORDERED: Dextrose 50% Syringe 50 ml 25 GM/50 ML SYRINGE IV PUSH PRN (07:54)
[2022-01-04] MEDS: Insulin GLARGINE 100 un/ml 10 ml VIAL SUBCUT SCH (08:41)
[2022-01-04] MEDS: Triamcinolone 0.025% OINT 15 GM TUBE TOPICAL SCH ×2 (08:50→19:36)
[2022-01-04] MEDS: Polyethylene Glycol 3350 17 GM PACKET PO SCH ×2 (08:50→11:33)
[2022-01-04] MEDS ORDERED: Ondansetron 4 mg VIAL 2 MG/ML 2 ml VIAL IV PRN (13:00)
[2022-01-04] MEDS ORDERED: Ondansetron 4 mg VIAL 2 MG/ML 2 ml VIAL ONE (13:03)
[2022-01-04] MEDS ORDERED: Lactated Ringers 1000 ml BAG 1,000 ML IV SCH (14:00)
[2022-01-04 20:53] LABS: Calcium 7.8 mg/dL (8.6-10.3); Magnesium 2.4 mg/dL (1.9-2.7); Potassium 4.4 mmol/L (3.5-5.0); eGFR CKD-EPI 22.6 (>60)
[2022-01-05] MEDS: Lactated Ringers 1000 ml BAG 1,000 ML IV SCH ×2 (00:01→08:53)
[2022-01-05] MEDS: Heparin 5000 UNITS/ML 1 mL VIAL SUBCUT SCH ×3 (05:41→21:16)
[2022-01-05 06:47] LABS: ABS Eosinophils 0.1 10^3/ul (0-0.6); ABS Lymphocytes 1.5 10^3/ul (1.0-4.8); ABS Monocytes 0.7 10^3/ul (0-0.8); ABS Neutrophils 4.8 10^3/ul (1.5-7.7); Eosinophil % 1.3 %; Hematocrit 26 % (35-47); Hemoglobin 8.8 g/dL (12.0-16.0); Lymphocyte % 20.8 %; Mean Corpuscular HGB Conc 34 g/dL (31-36); Mean Corpuscular Hemoglobin 28 pg (27-31); Mean Corpuscular Volume 84 fL (80-97); Mean Platelet Volume 8.9 fL (7.4-10.4); Nucleated Red Blood Cells % 0.4; Platelet Count 226 10^3/uL (150-450); Red Blood Count 3.11 10^6 /uL (3.70-4.87); Red Cell Distribution Width 19 % (10-15); White Blood Count 7.1 10^3/uL (3.5-10.8)
[2022-01-05 07:15] LABS: Calcium 7.8 mg/dL (8.6-10.3); Magnesium 2.4 mg/dL (1.9-2.7); Potassium 4.3 mmol/L (3.5-5.0)
[2022-01-05] MEDS: Triamcinolone 0.025% OINT 15 GM TUBE TOPICAL SCH ×2 (08:45→21:16)
[2022-01-06] MEDS: Heparin 5000 UNITS/ML 1 mL VIAL SUBCUT SCH (05:40)
[2022-01-06 06:21] LABS: ABS Eosinophils 0.2 10^3/ul (0-0.6); ABS Lymphocytes 1.6 10^3/ul (1.0-4.8); ABS Monocytes 0.7 10^3/ul (0-0.8); ABS Neutrophils 4.3 10^3/ul (1.5-7.7); Eosinophil % 2.8 %; Hematocrit 25 % (35-47); Hemoglobin 8.4 g/dL (12.0-16.0); Lymphocyte % 23.8 %; Mean Corpuscular HGB Conc 34 g/dL (31-36); Mean Corpuscular Hemoglobin 28 pg (27-31); Mean Corpuscular Volume 84 fL (80-97); Mean Platelet Volume 8.8 fL (7.4-10.4); Nucleated Red Blood Cells % 0.4; Platelet Count 229 10^3/uL (150-450); Red Blood Count 2.99 10^6 /uL (3.70-4.87); Red Cell Distribution Width 19 % (10-15); White Blood Count 6.8 10^3/uL (3.5-10.8)
[2022-01-06 06:46] LABS: Calcium 7.7 mg/dL (8.6-10.3); Magnesium 2.3 mg/dL (1.9-2.7); Potassium 4.2 mmol/L (3.5-5.0); eGFR CKD-EPI 18.2 (>60)
[2022-01-06] MEDS: Triamcinolone 0.025% OINT 15 GM TUBE TOPICAL SCH (07:43)
[2022-01-06] MEDS ORDERED: NS 0.9% 1000 ml BAG 1,000 ML IV SCH (08:45)
[2022-01-06 11:18] VITALS: BP 126/74
== END 2022-01-06 14:00 | disposition home or self-care (01) | DRG 580 ==
LOC: ED 16:14 → EDHOLD 16:14 → SUATTDRO 23:21 → SSU 01-01 01:25
PROVIDERS: ADMIT Internal Medicine; ATTEND Student in an Organized Health Care Education/Training Program